=== PATIENT | male | born 1945 | race Caucasian/White ===

== ENCOUNTER 2017-12-17 15:14 | Emergency (ER) | payer MEDICARE ==
[~2017-12-17] VITALS: Ht 175.3 cm; Wt 115.7 kg
[~2017-12-17 15:14] MED LIST: Amlodipine Besyl5 MG PO; Aspirin EC81 MG; BLOOD PRESSURE MED; CHOL10002; FINA5 PO; FLUSAL2505; HYDCHL25 PO; INSLIS75I SC; METO100ER PO; Metformin HCl500 MG PO; OMEP20ER PO; Pravachol40 MG PO; Revatio20 MG PO; SEASONAL ALLERGY MED; STOMACH MED; Zestril40 MG; [UNRECOGNIZED DRUG - OTHER]
[2017-12-17] MEDS ORDERED: FURO40 PO (17:29)
[2017-12-17] MEDS ORDERED: TAMS.4ER PO (17:29)
== END 2017-12-17 18:12 | disposition home or self-care (01) ==
LOC: ER 15:14
DX: R60.0 Localized edema (principal); Z79.899 Other long term (current) drug therapy; Z79.82 Long term (current) use of aspirin; Z79.84 Long term (current) use of oral hypoglycemic drugs
CPT/HCPCS: 93971; 99284-25

== ENCOUNTER 2018-12-17 14:47 | Emergency (ER) | payer MEDICARE ==
[~2018-12-17] VITALS: Ht 170.2 cm; Wt 111.1 kg
[~2018-12-17 14:47] MED LIST changes: +AMLO5 PO; -Amlodipine Besyl5 MG PO; +FURO40 PO; +METF500C PO; -Metformin HCl500 MG PO; +TAMS.4ER PO
[2018-12-17] MEDS ORDERED: IBUP600 PO (17:31)
[2018-12-18] MEDS ORDERED: LABE100 PO (08:27)
[2018-12-18] MEDS ORDERED: POTA10T PO (08:27)
[2018-12-18] MEDS ORDERED: WIXELA 100-501 EACH INH (08:33)
[2018-12-18] MEDS ORDERED: B Complex #11 EACH PO (08:34)
[2018-12-18] MEDS ORDERED: ASCO500 PO (08:35)
[2018-12-18] MEDS ORDERED: CYAN500 PO (08:35)
== END 2018-12-17 17:56 | disposition home or self-care (01) ==
LOC: ER 14:47
DX: M48.061 Spinal stenosis, lumbar region without neurogenic claudication (principal); Z79.899 Other long term (current) drug therapy
CPT/HCPCS: 96372; 99284-25; J1100; J1885

== ENCOUNTER 2018-12-18 07:33 | Emergency (ER) | payer MEDICARE ==
[~2018-12-18] VITALS: Ht 170.2 cm; Wt 111.1 kg
[~2018-12-18 07:33] MED LIST changes: +IBUP600 PO
[2018-12-18 08:11] LABS: BASOPHILS ABSOLUTE AUTO 0.02 K/mm3 (0.00-0.23); BASOPHILS PERCENT AUTO 0 % (0-2); EOSINOPHILS PERCENT AUTO 0 % (0-6); Hematocrit 43.9 % (37.0-53.0); Hemoglobin 15.1 g/dL (13.5-17.5); IMMATURE GRAN ABSOLUTE AUTO 0.05 K/mm3 (0.00-0.10); IMMATURE GRAN PERCENT AUTO 0 % (0-1); LYMPHOCYTES ABSOLUTE AUTO 0.64 K/mm3 (0.84-5.20); LYMPHOCYTES PERCENT AUTO 5 % (21-46); MONOCYTES ABSOLUTE AUTO 0.41 K/mm3 (0.16-1.47); MONOCYTES PERCENT AUTO 3 % (4-13); Mean Corpuscular HGB 30.3 pg (26.0-34.0); Mean Corpuscular HGB Conc 34.4 g/dL (31.5-36.5); Mean Corpuscular Volume 88 fL (80-100); NEUTROPHILS ABSOLUTE AUTO 11.01 K/mm3 (1.96-9.15); NEUTROPHILS PERCENT AUTO 91 % (41-73); Platelet Count 241 K/mm3 (150-400); RDW Coefficient Variation 12.7 % (11.7-14.2); RDW Standard Deviation 41.3 fL (35.1-46.3); Red Blood Cell Count 4.99 M/mm3 (4.30-5.90); White Blood Cell Count 12.13 K/mm3 (4.00-11.30)
[2018-12-18] MEDS ORDERED: LABE100 PO (08:27)
[2018-12-18] MEDS ORDERED: POTA10T PO (08:27)
[2018-12-18] MEDS ORDERED: WIXELA 100-501 EACH INH (08:33)
[2018-12-18] MEDS ORDERED: B Complex #11 EACH PO (08:34)
[2018-12-18] MEDS ORDERED: ASCO500 PO (08:35)
[2018-12-18] MEDS ORDERED: CYAN500 PO (08:35)
[2018-12-18 08:37] LABS: Creatinine, Blood 1.46 mg/dL (0.60-1.20); Potassium, Blood 3.8 mmol/L (3.5-5.5)
[2018-12-18 08:55] LABS: Source, Urine Catheter
[2018-12-18 08:58] LABS: Appearance, Urine Clear (Clear); Bilirubin, Urine Neg (Neg); Blood, Urine Neg (Neg); Color, Urine Yellow (P-Yellow); Glucose Qualitative, Urine Neg (Neg); Ketones, Urine Neg (Neg); Leukocyte Esterase, Urine Neg (Neg); Nitrite, Urine Neg (Neg); Protein, Urine 3+ (Neg); Specific Gravity, Urine 1.015 (1.003-1.022); Urobilinogen, Urine NORM (Normal)
[2018-12-18 09:25] LABS: Amorphous Light (0-Heavy); Bacteria Rare /hpf; Red Blood Cells, Urine 0-2 /hpf (0-2); Squamous Epithelial Cells Not Seen /hpf (Few); White Blood Cells, Urine 0-2 /hpf (0-5)
[2018-12-18 15:36] LABS: International Normalized Ratio 0.99; Prothrombin Time Results 10.5 Sec (9.7-11.5)
[2018-12-18 16:49] LABS: Glucose, CSF 63 mg/dL (40-70)
[2018-12-18 17:10] LABS: Color, CSF No Color (No Color)
[2018-12-18 17:11] LABS: RBC Count, CSF 26 /mm3 (0-0); WBC Count, CSF 5 /mm3 (0-5)
[2018-12-18 18:21] LABS: Appearance, CSF Clear (Clear); Color, CSF No Color (No Color); RBC Count, CSF 83 /mm3 (0-0); WBC Count, CSF 9 /mm3 (0-5)
[2018-12-18 18:28] LABS: Appearance, CSF Clear (Clear)
[2018-12-18 18:38] LABS: Lymphocytes, CSF 74 % (40-80); Monocytes, CSF 24 % (15-45); Neutrophils, CSF 2 % (0-6)
[2018-12-18 18:45] LABS: Lymphocytes, CSF 75 % (40-80); Monocytes, CSF 20 % (15-45); Neutrophils, CSF 5 % (0-6)
[2018-12-18 21:38] LABS: Cryptococcus Neoformans/Gattii Not Detected (NOT DETECT); Enterovirus Not Detected (NOT DETECT); Escherichia Coli K1 Not Detected (NOT DETECT); Haemophilus Influenza Not Detected (NOT DETECT); Herpes Simplex Virus 1 Not Detected (NOT DETECT); Herpes Simplex Virus 2 Not Detected (NOT DETECT); Human Herpesvirus 6 Not Detected (NOT DETECT); Human Parechovirus Not Detected (NOT DETECT); Listeria Monocytogenes Not Detected (NOT DETECT); Neisseria Meningitidis Not Detected (NOT DETECT); Streptococcus Agalactiae Not Detected (NOT DETECT); Streptococcus Pneumoniae Not Detected (NOT DETECT); Varicella Zoster Virus Not Detected (NOT DETECT)
== END 2018-12-18 19:56 | disposition home or self-care (01) ==
LOC: ER 07:33
PROVIDERS: Emergency Medicine
DX: R29.898 Other symptoms and signs involving the musculoskeletal system (principal); R56.9 Unspecified convulsions; Z79.899 Other long term (current) drug therapy
CPT/HCPCS: 36415; 51702; 62270; 70450; 72158; 77003; 80048; 81001; 82945; 82947; 84157; 85025; 85610; 85651; 85730; 86140; 87070; 87205; 87483; 89051; 99285-25; A9577; J7030

== ENCOUNTER 2021-07-24 11:32 | Emergency (ER) | payer OTHER ==
[~2021-07-24] VITALS: Ht 167.6 cm; Wt 120.2 kg
[~2021-07-24 11:32] MED LIST changes: +ASCO500 PO; +B Complex #11 EACH PO; +CEFP200 PO; +CYAN500 PO; +LABE100 PO; +POTA10T PO; +WIXELA 100-501 EACH INH
[2021-07-24] MEDS ORDERED: PRAV20 PO (13:28)
[2021-07-24] MEDS ORDERED: IRON18 MG PO (13:29)
[2021-07-24] MEDS ORDERED: MAGNESIUM OXID500 MG PO (13:29)
[2021-07-24] MEDS ORDERED: GABA100 PO (13:29)
[2021-07-24] MEDS ORDERED: ALBU90OI INH (13:30)
[2021-07-24] MEDS ORDERED: BACL10 PO (13:30)
[2021-07-24] MEDS ORDERED: POTCHL20ER PO (13:30)
[2021-07-24] MEDS ORDERED: DOCU100 PO (13:31)
[2021-07-24] MEDS ORDERED: FAMO20 PO (13:31)
[2021-07-24] MEDS ORDERED: DULO60 PO (13:31)
[2021-07-24] MEDS ORDERED: HYDRA25 PO (13:32)
[2021-07-24] MEDS ORDERED: POLYETHYLENE G500 G1 PO (13:32)
[2021-07-24 13:57] LABS: BASOPHILS ABSOLUTE AUTO 0.01 K/mm3 (0.00-0.23); BASOPHILS PERCENT AUTO 0 % (0-2); EOSINOPHILS PERCENT AUTO 5 % (0-6); Hematocrit 24.6 % (37.0-53.0); Hemoglobin 7.4 g/dL (13.5-17.5); IMMATURE GRAN ABSOLUTE AUTO 0.03 K/mm3 (0.00-0.10); IMMATURE GRAN PERCENT AUTO 1 % (0-1); LYMPHOCYTES ABSOLUTE AUTO 0.34 K/mm3 (0.84-5.20); LYMPHOCYTES PERCENT AUTO 5 % (21-46); MONOCYTES ABSOLUTE AUTO 0.69 K/mm3 (0.16-1.47); MONOCYTES PERCENT AUTO 11 % (4-13); Mean Corpuscular HGB 27.6 pg (26.0-34.0); Mean Corpuscular HGB Conc 30.1 g/dL (31.5-36.5); Mean Corpuscular Volume 92 fL (80-100); Mean Platelet Volume 10.7 fL (9.1-12.4); NEUTROPHILS ABSOLUTE AUTO 5.02 K/mm3 (1.96-9.15); NEUTROPHILS PERCENT AUTO 79 % (41-73); Platelet Count 266 K/mm3 (150-400); RDW Coefficient Variation 15.4 % (11.7-14.2); RDW Standard Deviation 51.5 fL (35.1-46.3); Red Blood Cell Count 2.68 M/mm3 (4.30-5.90); White Blood Cell Count 6.39 K/mm3 (4.00-11.30)
[2021-07-24 14:09] LABS: Albumin/Globulin Ratio 0.9 (0.8-1.8); Bilirubin, Total 0.4 mg/dL (0.1-1.0); Bun/Creatinine Ratio 13.5 (12.0-20.0); Calcium, Blood 8.5 mg/dL (8.5-10.1); Creatinine, Blood 1.55 mg/dL (0.60-1.20); Globulin, Blood 3.2 g/dL (2.2-4.0); Total Protein, Blood 6.2 g/dL (6.4-8.2)
[2021-07-24 15:16] LABS: International Normalized Ratio 1.01; Prothrombin Time Results 10.6 Sec (9.7-11.5)
[2021-07-24 17:10] LABS: Influenza A, PCR NEGATIVE (NEGATIVE); Influenza B, PCR NEGATIVE (NEGATIVE); Resp Syncytial Virus, PCR NEGATIVE (NEGATIVE); SARS-Cov-2 (COVID-19) PCR, MMC NEGATIVE (NEGATIVE)
== END 2021-07-24 19:17 | disposition short-term general hospital (02) ==
LOC: ER 11:32
PROVIDERS: Student in an Organized Health Care Education/Training Program
DX: J81.1 Chronic pulmonary edema (principal); N19 Unspecified kidney failure; D64.9 Anemia, unspecified; K92.1 Melena; Z20.822 Contact with and (suspected) exposure to COVID-19; G40.909 Epilepsy, unspecified, not intractable, without status epilepticus; I10 Essential (primary) hypertension; E11.9 Type 2 diabetes mellitus without complications; Z79.899 Other long term (current) drug therapy; Z79.82 Long term (current) use of aspirin
CPT/HCPCS: 0241U; 36415; 51702; 71045; 80053; 82272; 83880; 85025; 85610; 85730; 86850; 86900; 86901; 93005; 93010; 96374; 96375; 99285-25; C9113; J1940

== ENCOUNTER → 2021-08-24 | Outpatient (CLI) | payer MEDICARE ==
[~2021-08-24] MED LIST changes: +ACET325 PO; +ALBU90OI INH; -Aspirin EC81 MG; +Aspirin EC81 MG PO; -B Complex #11 EACH PO; +BACL10 PO; +BISA10S PR; +DOCU100 PO; +DULO60 PO; +FAMO20 PO; +FERSU300 PO; +FURO20 PO; +GABA100 PO; +HYDRA25 PO; +IRON18 MG PO; +LACT PO; +MAGNESIUM OXID500 MG PO; +METF500 PO; +MIRALAX17 GM PO; +OXYB5 PO; +PANT40 PO; +POLYETHYLENE G500 G1 PO; +POTCHL20ER PO; +PRAV20 PO; +THERA-D2000 UNIT PO; +VITAMIN B-122000 MC1 PO; +Vitamin B Comple1 EA PO; +WIXELA 100-501 EAC1 INH; -WIXELA 100-501 EACH INH; +ZYRTEC10 M2 PO
[2021-08-24 18:58] LABS: BASOPHILS ABSOLUTE AUTO 0.01 K/mm3 (0.00-0.23); BASOPHILS PERCENT AUTO 0 % (0-2); EOSINOPHILS ABSOLUTE AUTO 0.56 K/mm3 (0.00-0.68); EOSINOPHILS PERCENT AUTO 6 % (0-6); Hematocrit 28.2 % (37.0-53.0); Hemoglobin 8.6 g/dL (13.5-17.5); IMMATURE GRAN ABSOLUTE AUTO 0.04 K/mm3 (0.00-0.10); IMMATURE GRAN PERCENT AUTO 0 % (0-1); LYMPHOCYTES ABSOLUTE AUTO 0.37 K/mm3 (0.84-5.20); LYMPHOCYTES PERCENT AUTO 4 % (21-46); MONOCYTES ABSOLUTE AUTO 0.64 K/mm3 (0.16-1.47); MONOCYTES PERCENT AUTO 7 % (4-13); Mean Corpuscular HGB 25.6 pg (26.0-34.0); Mean Corpuscular HGB Conc 30.5 g/dL (31.5-36.5); Mean Corpuscular Volume 84 fL (80-100); Mean Platelet Volume 10.3 fL (9.1-12.4); NEUTROPHILS ABSOLUTE AUTO 7.66 K/mm3 (1.96-9.15); NEUTROPHILS PERCENT AUTO 83 % (41-73); Platelet Count 344 K/mm3 (150-400); RDW Coefficient Variation 14.8 % (11.7-14.2); RDW Standard Deviation 45.6 fL (35.1-46.3); Red Blood Cell Count 3.36 M/mm3 (4.30-5.90); White Blood Cell Count 9.28 K/mm3 (4.00-11.30)
== END | disposition home or self-care (01) ==
LOC: LAB 17:00 → LAB SHORT 17:00
PROVIDERS: Student in an Organized Health Care Education/Training Program
DX: D64.9 Anemia, unspecified (principal)
CPT/HCPCS: 85025

== ENCOUNTER → 2021-09-28 | Outpatient (CLI) | payer MEDICARE ==
[2021-09-28 19:51] LABS: Protein, Urine Quantitative 133.3 mg/dL (0.0-11.9)
== END | disposition home or self-care (01) ==
LOC: LAB SHORT 07:00 → LAB 07:00
PROVIDERS: Internal Medicine Nephrology
DX: N18.4 Chronic kidney disease, stage 4 (severe) (principal); D63.1 Anemia in chronic kidney disease; D50.9 Iron deficiency anemia, unspecified; N25.81 Secondary hyperparathyroidism of renal origin; E55.9 Vitamin D deficiency, unspecified; E78.00 Pure hypercholesterolemia, unspecified; D51.8 Other vitamin B12 deficiency anemias; D52.8 Other folate deficiency anemias; R76.9 Abnormal immunological finding in serum, unspecified; R94.5 Abnormal results of liver function studies; R94.6 Abnormal results of thyroid function studies
CPT/HCPCS: 81050; 82043; 82570; 84156

== ENCOUNTER → 2021-10-08 | Outpatient (CLI) | payer OTHER | END | disposition home or self-care (01) | LOC: LAB 16:26 → LAB SHORT 16:26 | DX: N39.0 Urinary tract infection, site not specified (principal) | CPT/HCPCS: 87086 ==

== ENCOUNTER → 2022-03-12 | Outpatient (CLI) | payer OTHER | END | disposition home or self-care (01) | LOC: LAB SHORT 15:00 | DX: N39.0 Urinary tract infection, site not specified (principal) | CPT/HCPCS: 87077; 87086; 87186 ==

== ENCOUNTER → 2022-06-17 | Outpatient (CLI) | payer OTHER | END | disposition home or self-care (01) | LOC: LAB SHORT 15:14 → LAB 15:14 | DX: N39.0 Urinary tract infection, site not specified (principal) | CPT/HCPCS: 87077; 87086; 87186 ==

== ENCOUNTER → 2023-01-06 | Outpatient (CLI) | payer OTHER | LOC: LAB SHORT 08:00 → LAB 08:00 | DX: N39.0 Urinary tract infection, site not specified (principal) | CPT/HCPCS: 87077; 87086; 87186 ==

== ENCOUNTER → 2023-03-06 | Outpatient (CLI) | payer OTHER | END | disposition home or self-care (01) | LOC: LAB 15:06 → LAB SHORT 15:06 | DX: N39.0 Urinary tract infection, site not specified (principal) | CPT/HCPCS: 87077; 87086; 87186 ==

== ENCOUNTER 2023-05-23 15:31 | Emergency (ER) | payer OTHER ==
[~2023-05-23] VITALS: Ht 170.2 cm; Wt 115.7 kg
[2023-05-23 15:35] VITALS: BP 130/70
[2023-05-23 16:17] LABS: Source, Urine Clean Catch
[2023-05-23 16:20] LABS: Appearance, Urine Clear (Clear); Bilirubin, Urine Neg (Neg); Blood, Urine Neg (Neg); Color, Urine Yellow (P-Yellow); Glucose Qualitative, Urine Neg (Neg); Ketones, Urine Neg (Neg); Leukocyte Esterase, Urine Neg (Neg); Nitrite, Urine Neg (Neg); Protein, Urine 2+ (Neg); Specific Gravity, Urine 1.015 (1.003-1.022); Urobilinogen, Urine NORM (Normal)
[2023-05-23 16:25] LABS: Hyaline Casts 0-2 /lpf (0-2)
[2023-05-23 16:26] LABS: Bacteria Few /hpf; Red Blood Cells, Urine 0-2 /hpf (0-2); Squamous Epithelial Cells Few /hpf (Few); White Blood Cells, Urine 0-2 /hpf (0-5)
== END 2023-05-23 17:57 | disposition home or self-care (01) ==
LOC: ER 15:31
PROVIDERS: Physician Assistant
DX: R33.9 Retention of urine, unspecified (principal); Z79.899 Other long term (current) drug therapy; Z79.84 Long term (current) use of oral hypoglycemic drugs; Z79.82 Long term (current) use of aspirin; G40.909 Epilepsy, unspecified, not intractable, without status epilepticus; I10 Essential (primary) hypertension; E11.9 Type 2 diabetes mellitus without complications
CPT/HCPCS: 51702; 81001

== ENCOUNTER 2024-01-26 11:42 | Inpatient (IN) | payer OTHER, MEDICARE ==
[~2024-01-26] VITALS: Ht 170.2 cm; Wt 113.4 kg
[~2024-01-26 11:42] MED LIST changes: +DULO30 PO; -DULO60 PO; -FURO20 PO; +FURO80 PO; -LACT PO; -PRAV20 PO; +PRAVASTATIN SOD40 MG PO; +VISBIOME 112.51 EACH PO
[2024-01-26] MEDS ORDERED: Pantoprazole Sodium 40 MG Injection IV ONE (11:50)
[2024-01-26] MEDS ORDERED: CefTRIAXone Sodium 1,000 MG in NS 100 ML IV ONE ×2 (11:50→13:30)
[2024-01-26] MEDS ORDERED: NS 1,000 ML IV SCH (12:00)
[2024-01-26 12:25] LABS: BASOPHILS ABSOLUTE AUTO 0.02 K/mm3 (0.00-0.23); BASOPHILS PERCENT AUTO 0 % (0-2); EOSINOPHILS ABSOLUTE AUTO 0.05 K/mm3 (0.00-0.68); EOSINOPHILS PERCENT AUTO 0 % (0-6); Hematocrit 33.5 % (37.0-53.0); Hemoglobin 10.2 g/dL (13.5-17.5); IMMATURE GRAN ABSOLUTE AUTO 0.08 K/mm3 (0.00-0.10); IMMATURE GRAN PERCENT AUTO 1 % (0-1); LYMPHOCYTES ABSOLUTE AUTO 0.27 K/mm3 (0.84-5.20); LYMPHOCYTES PERCENT AUTO 2 % (21-46); MONOCYTES ABSOLUTE AUTO 1.29 K/mm3 (0.16-1.47); MONOCYTES PERCENT AUTO 8 % (4-13); Mean Corpuscular HGB 24.6 pg (26.0-34.0); Mean Corpuscular HGB Conc 30.4 g/dL (31.5-36.5); Mean Corpuscular Volume 81 fL (80-100); Mean Platelet Volume 10.7 fL (9.1-12.4); NEUTROPHILS ABSOLUTE AUTO 14.31 K/mm3 (1.96-9.15); NEUTROPHILS PERCENT AUTO 89 % (41-73); Platelet Count 249 K/mm3 (150-400); RDW Coefficient Variation 20.4 % (11.7-14.2); RDW Standard Deviation 59.2 fL (35.1-46.3); Red Blood Cell Count 4.14 M/mm3 (4.30-5.90); White Blood Cell Count 16.02 K/mm3 (4.00-11.30)
[2024-01-26 12:51] LABS: Albumin, Blood 2.3 g/dL (3.4-5.0); Albumin/Globulin Ratio 0.7 (0.8-1.8); Bilirubin, Total 0.4 mg/dL (0.1-1.0); Bun/Creatinine Ratio 18.8 (12.0-20.0); Calcium, Blood 8.1 mg/dL (8.5-10.1); Creatinine, Blood 2.61 mg/dL (0.60-1.20); Globulin, Blood 3.2 g/dL (2.2-4.0); Potassium, Blood 3.9 mmol/L (3.5-5.5); Total Protein, Blood 5.5 g/dL (6.4-8.2)
[2024-01-26 13:10] LABS: International Normalized Ratio 1.03
[2024-01-26] MEDS ORDERED: MetroNIDAZOLE 500MG/NS 100 ml 100 ML IV ONE ×2 (13:30→16:25)
[2024-01-26] MEDS ORDERED: HYDROmorphone HCl/Pf 1MG SYR IV PRN (14:55)
[2024-01-26] MEDS ORDERED: FLU VACC TS2024-25(6MOS UP)/PF 45 MCG/0.5 ML SYRINGE IM SCH (14:55)
[2024-01-26] MEDS ORDERED: Acetaminophen 325 MG TABLET PO PRN (15:00)
[2024-01-26] MEDS ORDERED: Albuterol 2.5 MG/3 ML VIAL INH PRN (15:00)
[2024-01-26] MEDS ORDERED: Mometasone/Formoterol MDI 100/5 mcg 13 GM INH SCH (15:15)
[2024-01-26] MEDS ORDERED: Sodium Bicarb 8.4% Inj 75 MEQ in Sodium Chloride 0.45% 1,000 ML IV SCH (16:00)
[2024-01-26] MEDS ORDERED: Insulin Glargine-Yfgn 100 Unit/mL 3 ML SYR SC SCH (16:00)
[2024-01-26] MEDS ORDERED: Insulin Regular 100 UNIT/ML 10ML Vial SC SCH (16:30)
[2024-01-26] MEDS ORDERED: INSULANPEN SC (16:33)
[2024-01-26] MEDS ORDERED: LIDO5TO TOP (16:35)
[2024-01-26] MEDS ORDERED: NITR100CA PO (16:45)
[2024-01-26] MEDS ORDERED: TRAZ50 PO (16:48)
[2024-01-26] MEDS ORDERED: Carvedilol12.5 MG PO (16:59)
[2024-01-26] MEDS ORDERED: LOSA50 PO (17:01)
[2024-01-26] MEDS ORDERED: POTA20LUD PO (17:01)
[2024-01-26] MEDS ORDERED: PROCRIT40000 UNIT INJ (17:06)
[2024-01-26 18:58] VITALS: BP 105/75
[2024-01-26 18:58] LABS: Source, Urine Straight Cath
[2024-01-26 19:09] LABS: Appearance, Urine Cloudy (Clear); Bilirubin, Urine Neg (Neg); Blood, Urine Neg (Neg); Color, Urine Yellow (P-Yellow); Glucose Qualitative, Urine Neg (Neg); Ketones, Urine Neg (Neg); Leukocyte Esterase, Urine 3+ (Neg); Nitrite, Urine Neg (Neg); Protein, Urine 2+ (Neg); Specific Gravity, Urine 1.015 (1.003-1.022); Urobilinogen, Urine NORM (Normal)
[2024-01-26 19:23] LABS: White Blood Cells, Urine TNTC /hpf (0-5)
[2024-01-26 19:24] LABS: Red Blood Cells, Urine 0-2 /hpf (0-2)
[2024-01-26 19:25] LABS: Bacteria Many /hpf; Squamous Epithelial Cells Not Seen /hpf (Few)
[2024-01-26 20:37] VITALS: BP 127/59
[2024-01-26] MEDS ORDERED: DULoxetine HCL 60 MG Capsule DR PO SCH (21:00)
[2024-01-26] MEDS ORDERED: Baclofen 10 MG Tab PO SCH (21:00)
[2024-01-26] MEDS ORDERED: Famotidine 20 MG Tab PO SCH (21:00)
[2024-01-26] MEDS ORDERED: Lactobacil 2-S.Thermo-Bifido 1 1 Cap PO SCH (21:00)
[2024-01-26] MEDS ORDERED: Gabapentin 100 MG Cap PO SCH (21:00)
[2024-01-26] MEDS ORDERED: Pravastatin Sodium 20 MG Tab PO SCH (21:00)
[2024-01-26 22:15] LABS: Beta-hydroxybutyrate 4.2 mg/dL (0.2-2.8); Bun/Creatinine Ratio 17.3 (12.0-20.0); Calcium, Blood 8.3 mg/dL (8.5-10.1); Creatinine, Blood 2.71 mg/dL (0.60-1.20); Potassium, Blood 4.1 mmol/L (3.5-5.5)
[2024-01-27] MEDS ORDERED: MetroNIDAZOLE 500MG/NS 100 ml 100 ML IV SCH
[2024-01-27 04:30] VITALS: BP 104/54
--- NOTE | 2024-01-27 04:36 | NUR ---
SHIFT SUMMARY: Pt is admitted for proctocolitis and is a full code. Is alert and able to make needs known. ADLs have been 2p. Denies pain or discomfort when asked. Telly running sinus in the 70s with a 1 deg. at bedside.
[2024-01-27] MEDS ORDERED: MULVITA PO (05:32)
[2024-01-27] MEDS ORDERED: ARTIFICIAL TEA1 EAC1 BOTHEYES (05:33)
[2024-01-27] MEDS ORDERED: OZEMPIC1 MG/0.72 SC (05:37)
[2024-01-27 06:00] LABS: BASOPHILS ABSOLUTE AUTO 0.01 K/mm3 (0.00-0.23); BASOPHILS PERCENT AUTO 0 % (0-2); EOSINOPHILS ABSOLUTE AUTO 0.03 K/mm3 (0.00-0.68); EOSINOPHILS PERCENT AUTO 0 % (0-6); Hematocrit 30.7 % (37.0-53.0); Hemoglobin 9.3 g/dL (13.5-17.5); IMMATURE GRAN ABSOLUTE AUTO 0.07 K/mm3 (0.00-0.10); IMMATURE GRAN PERCENT AUTO 1 % (0-1); LYMPHOCYTES ABSOLUTE AUTO 0.18 K/mm3 (0.84-5.20); LYMPHOCYTES PERCENT AUTO 2 % (21-46); MONOCYTES ABSOLUTE AUTO 1.07 K/mm3 (0.16-1.47); MONOCYTES PERCENT AUTO 9 % (4-13); Mean Corpuscular HGB 24.5 pg (26.0-34.0); Mean Corpuscular HGB Conc 30.3 g/dL (31.5-36.5); Mean Corpuscular Volume 81 fL (80-100); Mean Platelet Volume 10.1 fL (9.1-12.4); NEUTROPHILS ABSOLUTE AUTO 10.68 K/mm3 (1.96-9.15); NEUTROPHILS PERCENT AUTO 89 % (41-73); Platelet Count 249 K/mm3 (150-400); RDW Coefficient Variation 20.6 % (11.7-14.2); RDW Standard Deviation 60.1 fL (35.1-46.3); Red Blood Cell Count 3.79 M/mm3 (4.30-5.90); White Blood Cell Count 12.04 K/mm3 (4.00-11.30)
[2024-01-27] MEDS ORDERED: Pantoprazole Sodium 40 MG Tab PO SCH (06:00)
[2024-01-27 06:35] LABS: Albumin, Blood 2.1 g/dL (3.4-5.0); Albumin/Globulin Ratio 0.8 (0.8-1.8); Bilirubin, Total 0.3 mg/dL (0.1-1.0); Bun/Creatinine Ratio 16.7 (12.0-20.0); Calcium, Blood 7.7 mg/dL (8.5-10.1); Creatinine, Blood 2.81 mg/dL (0.60-1.20); Globulin, Blood 2.8 g/dL (2.2-4.0); Potassium, Blood 3.6 mmol/L (3.5-5.5); Total Protein, Blood 4.9 g/dL (6.4-8.2)
[2024-01-27 07:46] VITALS: BP 114/45
[2024-01-27] MEDS ORDERED: Bumetanide 0.25 MG/ML 4ML ViaL IV SCH ×2 (09:00)
[2024-01-27] MEDS ORDERED: Potassium Chloride 20 MEQ/15 ML UDC PO SCH (09:00)
[2024-01-27] MEDS ORDERED: Furosemide 10 MG / ML 2ML Vial IV SCH (09:00)
[2024-01-27] MEDS ORDERED: Midodrine 2.5 MG Tab PO SCH (13:00)
[2024-01-27] MEDS ORDERED: LevETIRAcetam 500 MG Tab PO SCH (13:00)
[2024-01-27 13:45] VITALS: BP 108/45
[2024-01-27 15:41] VITALS: BP 140/63
[2024-01-27] MEDS ORDERED: CefTRIAXone Sodium 1,000 MG in NS 100 ML IV SCH (16:00)
[2024-01-27 17:00] VITALS: BP 131/59
--- NOTE | 2024-01-27 17:32 | NUR ---
SHIFT SUMMARY PT IS A&OX2. PT ALERT TO SELF, REPORTS DAY AND MONTH OF BIRTHDAY, CAN'T RECAL YEAR/CURRENT LOCATION. PT ADMITTED DUE TO PROCTOCOLITIS. PT REPORTS SOME ABDOMINAL TENDERNESS. 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 HAS ORDERS TO PT RECIEVING ANTIBIOTICS AND SODIUM BICARD AT 75ML/HR. PT HAS BEEN AT BEDSIDE DURING DAY. REPORTS STRAIGHT CATHING HIM Q6-7 HRS. ORDERS CURRENTLY SAY TO STRAIGHT CATH Q8 HRS. PT HAD 350ML VOID THIS AM AND 400ML VOID THIS AFTERNOON. PT INCONTINENT OF STOOLS. STOOLS HAVE BEEN LIQUIDY. PT HAS HAD SOFT BLOOD PRESSURES. BP CURRENTLY 131/59. PT HAS NOT REPORTED PAIN. PT HAS SOME TEMORS IN BUE. PT CALL LIGHT IN REACH.
--- NOTE | 2024-01-27 19:28 | NUR ---
NOTE PT RECIEVED ANTIBIOTIC FLUIDS DURING SHIFT. SODIUM BICARB WAS RUNNING AT 75ML/HR. IV FLUID AMOUNT CLEARED WAS 1,834ML. PT VOIDED A TOTAL OF 750ML DURING SHIFT VIA STRAIGHT CATH. CALLED DR. PARK, DR. PARK ORDERED TO D/C SODIUM BICARB.
[2024-01-27 19:54] VITALS: BP 118/62
[2024-01-27] MEDS ORDERED: DULoxetine HCL 30 MG Cap DR PO SCH (21:00)
[2024-01-27] MEDS ORDERED: NS 250 ML IV PRN (22:00)
[2024-01-27] MEDS ORDERED: TraZODone HCl 50 MG Tab PO PRN (23:20)
[2024-01-28 03:02] VITALS: BP 123/66
--- NOTE | 2024-01-28 04:25 | NUR ---
SHIFT SUMMARY PATIENT HAD NO ACUTE CHANGES. AXOX 2 AND BEDREST. DENIES CHEST PAIN, SOB, AND N/V. ON 1-2 L O2 NC. PIVS INTACT. IV ABX INFUSED. SPOUSE REPORTED HE TAKES TRAZODONE AT HOME FOR INSOMNIA. HOSPITALIST AUBREY SPARKS ORDERED TRAZODONE 50 MG HOME MED RX DOSE. SPOUSE ASKED FOR HIM TO BE BLADDER SCAN AT 6 HR VS Q8 ORDERED. BLADDER SCAN 10 mL. IV FLUIDS WERE DC ON DAY SHIFT. VSS/AFEBRILE.TELE MONITOR NSR 81. BUE TREMORS. ASSIST WITH MEDICATION AND FLUID INTAKE. SPOUSE STAYED IN ROOM T/O SHIFT. PATIENT CONFUSED AT TIMES PULLING TELE LEADS OFF X TWO. CALL LIGHT IN REACH. BED IN LOWEST POSITION. WILL CONTINUE TO MONITOR UNTIL DAY SHIFT NURSE ASSUMES CARE.
[2024-01-28 05:53] LABS: BASOPHILS ABSOLUTE AUTO 0.01 K/mm3 (0.00-0.23); BASOPHILS PERCENT AUTO 0 % (0-2); EOSINOPHILS ABSOLUTE AUTO 0.31 K/mm3 (0.00-0.68); EOSINOPHILS PERCENT AUTO 5 % (0-6); Hemoglobin 8.9 g/dL (13.5-17.5); IMMATURE GRAN ABSOLUTE AUTO 0.04 K/mm3 (0.00-0.10); IMMATURE GRAN PERCENT AUTO 1 % (0-1); LYMPHOCYTES ABSOLUTE AUTO 0.33 K/mm3 (0.84-5.20); LYMPHOCYTES PERCENT AUTO 5 % (21-46); MONOCYTES ABSOLUTE AUTO 0.82 K/mm3 (0.16-1.47); MONOCYTES PERCENT AUTO 12 % (4-13); Mean Corpuscular HGB 24.7 pg (26.0-34.0); Mean Corpuscular HGB Conc 30.7 g/dL (31.5-36.5); Mean Corpuscular Volume 80 fL (80-100); Mean Platelet Volume 9.9 fL (9.1-12.4); NEUTROPHILS ABSOLUTE AUTO 5.13 K/mm3 (1.96-9.15); NEUTROPHILS PERCENT AUTO 77 % (41-73); Platelet Count 257 K/mm3 (150-400); RDW Standard Deviation 58.5 fL (35.1-46.3); Red Blood Cell Count 3.61 M/mm3 (4.30-5.90); White Blood Cell Count 6.64 K/mm3 (4.00-11.30)
[2024-01-28 06:14] LABS: Bun/Creatinine Ratio 15.8 (12.0-20.0); Calcium, Blood 7.7 mg/dL (8.5-10.1); Creatinine, Blood 2.85 mg/dL (0.60-1.20); Potassium, Blood 3.4 mmol/L (3.5-5.5)
[2024-01-28 07:12] VITALS: BP 125/61
[2024-01-28 09:24] LABS: Magnesium, Blood 2.5 mg/dL (1.6-2.4); Phosphorus, Blood 4.9 mg/dL (2.5-4.9)
[2024-01-28] MEDS ORDERED: Sodium Bicarb 8.4% Inj 150 MEQ in Dextrose 5% 1,000 ML IV SCH (13:20)
[2024-01-28 13:22] LABS: PCO2 Arterial 37.7 mmHg (35-45); PO2 Arterial 75.6 mmHg (80-100); pH Blood Arterial 7.29 (7.35-7.45)
[2024-01-28 14:45] VITALS: BP 130/68
[2024-01-28] MEDS ORDERED: Sod Ferric Gluc Complx/Sucrose 125 MG in NS 100 ML IV SCH (16:00)
[2024-01-28 16:45] LABS: Percent Saturation 8.2 % (20.0-50.0)
[2024-01-28 17:33] LABS: Magnesium, Blood 2.5 mg/dL (1.6-2.4)
[2024-01-28 17:38] LABS: Potassium, Blood 4.1 mmol/L (3.5-5.5)
[2024-01-28] MEDS ORDERED: Bumetanide 0.25 MG/ML 4ML ViaL IV SCH (18:00)
--- NOTE | 2024-01-28 18:21 | NUR ---
SHIFT SUMMARY PT AO TO SELF, SLEPT A MAJORITY OF THE SHIFT. PG PLACED IN R UA AND RUNNING FLUIDS. STRAIGHT CATH AT LEAST Q6, DOCUMENTED IN CHART. REPOSITIONED THROUGHOUT THE SHIFT. NO EVENTS PER TELE. AT THE BS ALL SHIFT AND PROVIDED INFORMATION. WHEN PT IS AWAKE, HE IS CONFUSED AND USES WORD SALAD. CPAP ON DURING SLEEP. RA WHEN ABLE. CALL LIGHT WITHIN REACH, BED LOCKED AND IN THE LOWEST POSITION. WILL REPORT TO ONCOMING NURSE.
[2024-01-28 18:39] LABS: Magnesium, Blood 2.5 mg/dL (1.6-2.4); Potassium, Blood 3.9 mmol/L (3.5-5.5)
--- NOTE | 2024-01-28 18:43 | NUR ---
NOTE: CALLED DR. GONZALES WITH POTASSIUM AND MAGNESIUM RESULTS REQUESTED. NO NEW ORDERS AT THIS TIME.
[2024-01-28 20:40] VITALS: BP 142/66
[2024-01-29 03:34] VITALS: BP 144/86
[2024-01-29 05:49] LABS: BASOPHILS ABSOLUTE AUTO 0.02 K/mm3 (0.00-0.23); BASOPHILS PERCENT AUTO 0 % (0-2); EOSINOPHILS ABSOLUTE AUTO 0.27 K/mm3 (0.00-0.68); EOSINOPHILS PERCENT AUTO 5 % (0-6); Hematocrit 31.3 % (37.0-53.0); Hemoglobin 9.4 g/dL (13.5-17.5); IMMATURE GRAN ABSOLUTE AUTO 0.03 K/mm3 (0.00-0.10); IMMATURE GRAN PERCENT AUTO 1 % (0-1); LYMPHOCYTES ABSOLUTE AUTO 0.28 K/mm3 (0.84-5.20); LYMPHOCYTES PERCENT AUTO 5 % (21-46); MONOCYTES ABSOLUTE AUTO 0.82 K/mm3 (0.16-1.47); MONOCYTES PERCENT AUTO 14 % (4-13); Mean Corpuscular HGB 24.2 pg (26.0-34.0); Mean Corpuscular Volume 81 fL (80-100); NEUTROPHILS ABSOLUTE AUTO 4.39 K/mm3 (1.96-9.15); NEUTROPHILS PERCENT AUTO 76 % (41-73); Platelet Count 274 K/mm3 (150-400); RDW Coefficient Variation 20.1 % (11.7-14.2); RDW Standard Deviation 58.2 fL (35.1-46.3); Red Blood Cell Count 3.89 M/mm3 (4.30-5.90); White Blood Cell Count 5.81 K/mm3 (4.00-11.30)
[2024-01-29 06:34] LABS: Albumin, Blood 2.3 g/dL (3.4-5.0); Albumin/Globulin Ratio 0.7 (0.8-1.8); Bilirubin, Total 0.2 mg/dL (0.1-1.0); Bun/Creatinine Ratio 14.2 (12.0-20.0); Calcium, Blood 8.2 mg/dL (8.5-10.1); Creatinine, Blood 2.74 mg/dL (0.60-1.20); Globulin, Blood 3.1 g/dL (2.2-4.0); Magnesium, Blood 2.4 mg/dL (1.6-2.4); Phosphorus, Blood 4.9 mg/dL (2.5-4.9); Potassium, Blood 3.7 mmol/L (3.5-5.5); Total Protein, Blood 5.4 g/dL (6.4-8.2)
[2024-01-29 07:26] VITALS: BP 164/74
[2024-01-29] MEDS ORDERED: Potassium Chloride 20 MEQ TabCR PO SCH (08:00)
[2024-01-29] MEDS ORDERED: Eplerenone 25 MG Tab PO SCH (09:00)
[2024-01-29] MEDS ORDERED: Sodium Bicarbonate 650 MG Tab PO SCH (10:00)
[2024-01-29 12:55] LABS: Campylobacter Sp Not Detected (NOT DETECT); Cryptosporidium Not Detected (NOT DETECT); Cyclospora Cayetanensis Not Detected (NOT DETECT); E. Coli O157 Not Detected (NOT DETECT); Entamoeba Histolytica Not Detected (NOT DETECT); Enteroaggregative E. coli-EAEC Not Detected (NOT DETECT); Enteropathogenic E. coli-EPEC Not Detected (NOT DETECT); Enterotoxigenic E. coli-ETEC Not Detected (NOT DETECT); Plesiomonas Shigelloides Not Detected (NOT DETECT); Salmonella Sp Not Detected (NOT DETECT); Shiga Toxin-prod E. coli-STEC Not Detected (NOT DETECT); Shigella/Enteroin E. coli-EIEC Not Detected (NOT DETECT); Vibrio Cholerae Not Detected (NOT DETECT); Vibrio Sp Not Detected (NOT DETECT); Yersinia Enterocolitica Not Detected (NOT DETECT)
[2024-01-29 12:56] LABS: Adenovirus F 40/41 Not Detected (NOT DETECT); Astrovirus Not Detected (NOT DETECT); Giardia Lamblia Not Detected (NOT DETECT); Norovirus GI/GII Not Detected (NOT DETECT); Rotavirus A Not Detected (NOT DETECT); Sapovirus Not Detected (NOT DETECT)
[2024-01-29 14:03] VITALS: BP 167/77
[2024-01-29] MEDS ORDERED: Peg 400/Hypromellose/Glycerin 15 DROP/ML BTL BOTHEYES PRN (16:10)
[2024-01-29] MEDS ORDERED: AmLODIPine Besylate 5 MG Tab PO SCH (17:00)
[2024-01-29] MEDS ORDERED: Vancomycin HCl 125 MG Cap PO SCH (18:00)
--- NOTE | 2024-01-29 18:18 | NUR ---
SHIFT SUMMARY PT AOX3, MENTATION HAS IMPROVED THIS SHIFT. MORE ALERT AND ABLE TO HAVE A CONVERSATION. STRAIGHT CATH Q8. ON PRECAUTIONS FOR CDIFF. FAMILY AT THE BS. NO EVENTS PER TELE. PT HAS HAD NO COMPLAINTS. CALLS AND MAKES HIS NEEDS KNOWN. REPOSITIONED THROUGHT THE SHIFT. CALL LIGHT WITHIN REACH, BED LOCKED AND IN THE LOWEST POSITION. WILL REPORT TO ONCOMING NURSE.
[2024-01-29 19:31] VITALS: BP 178/87
[2024-01-30 04:25] VITALS: BP 172/85
--- NOTE | 2024-01-30 07:31 | NUR ---
SHIFT SUMMARY NOC PT A/O X 3-4. FORGETFUL AT TIMES, BUT PLEASANT AND COOPERATIVE WITH CARE. ON CONTACT ISOLATION FOR C DIFF. AND SISTER AT BEDSIDE. BP SLIGHTLY ELEVATED. PT Q8H STRAIGHT CATH DUE TO BELOW WAIST PARALYSIS. BLADDER SCAN SHOWED 1080 ML AND STRAIGHT CATH OUTPUT 950 ML. BP HAD DRIED BLOOD ON BACKSIDE FROM PRIOR BM. ON TELE SINUS RHYTHM IN 70'S. WEARING CPAP FOR SLEEP. HS CBG 154 AND SCHEDULED 5 UNITS LONG ACTING INSULIN GIVEN. PT CURRENTLY RESTING WITH BED IN LOWEST POSITION, AND CALL LIGHT WITHIN REACH.
[2024-01-30 07:43] VITALS: BP 188/93
[2024-01-30 08:03] LABS: Hemoglobin 9.5 g/dL (13.5-17.5)
[2024-01-30 08:10] LABS: Albumin, Blood 2.3 g/dL (3.4-5.0); Anion Gap 11 mmol/L (3-11); Blood Urea Nitrogen 33 mg/dL (8-24); Bun/Creatinine Ratio 13.1 (12.0-20.0); CO2, Blood 21 mmol/L (21-32); Calcium, Blood 7.8 mg/dL (8.5-10.1); Chloride, Blood 118 mmol/L (98-108); Creatinine, Blood 2.52 mg/dL (0.60-1.20); Glomerular Filtration Rate 26 (60-); Glucose, Blood 98 mg/dL (70-99); Magnesium, Blood 2.3 mg/dL (1.6-2.4); Phosphorus, Blood 4.1 mg/dL (2.5-4.9); Potassium, Blood 3.8 mmol/L (3.5-5.5); Sodium, Blood 146 mmol/L (136-145)
[2024-01-30] MEDS ORDERED: Metolazone 5 MG Tab PO SCH (09:00)
[2024-01-30] MEDS ORDERED: Bumetanide 0.25 MG/ML 4ML ViaL IV SCH (09:00)
[2024-01-30 09:07] LABS: Albumin, Blood 2.3 g/dL (3.4-5.0); Anion Gap 9 mmol/L (3-11); Blood Urea Nitrogen 33 mg/dL (8-24); Bun/Creatinine Ratio 12.9 (12.0-20.0); CO2, Blood 21 mmol/L (21-32); Calcium, Blood 7.8 mg/dL (8.5-10.1); Chloride, Blood 119 mmol/L (98-108); Creatinine, Blood 2.55 mg/dL (0.60-1.20); Glomerular Filtration Rate 25 (60-); Glucose, Blood 98 mg/dL (70-99); Phosphorus, Blood 4.2 mg/dL (2.5-4.9); Potassium, Blood 3.9 mmol/L (3.5-5.5); Sodium, Blood 145 mmol/L (136-145)
[2024-01-30 16:58] VITALS: BP 162/95
--- NOTE | 2024-01-30 18:19 | NUR ---
SHIFT SUMMARY: PT A&O X3. FORGETFUL AT TIMES. PLEASANT AND COOPERATIVE WITH CARE. CONTACT ENTERIC ISOLATION FOR CDIFF. IV DIURETICS GIVEN TWICE THIS SHIFT. STRAIGHT CATH COMPLETED TWICE WITH A TOTAL OF 1700mL EMPTIED. ON TELE RUNNING SINUS RHYHTM WITH 1ST DEGREE HB. BLOOD SUGAR STABLE. CALL LIGHT IN REACH. BED IN LOWEST POSITION.
[2024-01-30 20:03] VITALS: BP 154/80
[2024-01-31 05:38] VITALS: BP 178/90
[2024-01-31 06:19] LABS: Hematocrit 34.2 % (37.0-53.0); Hemoglobin 10.7 g/dL (13.5-17.5)
[2024-01-31 06:41] LABS: Albumin, Blood 2.6 g/dL (3.4-5.0); Anion Gap 11 mmol/L (3-11); Blood Urea Nitrogen 33 mg/dL (8-24); Bun/Creatinine Ratio 11.9 (12.0-20.0); CO2, Blood 22 mmol/L (21-32); Calcium, Blood 8.5 mg/dL (8.5-10.1); Chloride, Blood 113 mmol/L (98-108); Creatinine, Blood 2.77 mg/dL (0.60-1.20); Glomerular Filtration Rate 23 (60-); Glucose, Blood 108 mg/dL (70-99); Magnesium, Blood 1.9 mg/dL (1.6-2.4); Potassium, Blood 4.2 mmol/L (3.5-5.5); Sodium, Blood 142 mmol/L (136-145)
[2024-01-31 07:18] VITALS: BP 174/86
--- NOTE | 2024-01-31 07:34 | NUR ---
SHIFT SUMMARY PT A&Ox4. NO C/O PAIN OR FEELING SOB. PT REPORTS NO FEELING FROM WAIST DOWN. PT HAD TWO EPISODES OF MUCOUSY STOOL WITH SCANT AMOUNT OF BLOOD NOTED IN MUCOUS. PT STRAIGHT CATHED AT 2330 AND 0600. TOLERATED WELL. AT BEDSIDE AND VERY VOCAL ABOUT CARE. ORAL ABX GIVEN PER EMAR. MORNING BP ELEVATED. DR RAMAN CALLED AND ORDERS GIVEN TO WAIT AND GIVE SCHEDULED MORNING BP MED's, DAY SHIFT NURSE NOTIFIED. NO EVENTS ON TELE. EVENING BG WAS 106. BED IN LOWEST POSITION AND CALL LIGHT IN REACH.
[2024-01-31] MEDS ORDERED: Furosemide 10 MG/ML 4ML Vial IV SCH (09:00)
[2024-01-31] MEDS ORDERED: Midodrine 2.5 MG Tab PO SCH (09:00)
[2024-01-31] MEDS ORDERED: Albumin Human 50 ML IV SCH (09:00)
[2024-01-31] MEDS ORDERED: Metolazone 5 MG Tab PO SCH (09:00)
[2024-01-31 16:34] VITALS: BP 182/89
--- NOTE | 2024-01-31 17:37 | NUR ---
SHIFT SUMMARY PT RESTING QUIETLY AT START OF SHIFT ON CPAP. PT'S AT BS. PT IN CONTACT ISO FOR C-DIFF. PARAPLEGIC WITH NEUROGENIC BLADDER. STRAIGHT CATH Q6 HRS. PT GIVEN MULTIPLE PO AND IV MEDICATIONS THRU OUT THE DAY; SEE EMAR. SR ON TELE, PER MX. PT REFUSING TO BE POSITIONED OFF BUTTOCKS EXCEPT FOR ONE TIME. SKIN IN GOOD CONDITION AT THIS TIME. BLE'S VERY SWOLLEN; ELEVATED ON PILLOWS. PT REPORTS BEING NUMB FROM THE WAIST DOWN. NO C/O PAIN. DENIES FURTHER NEEDS AT THIS TIME. CALL LT IN REACH.
[2024-01-31 19:36] VITALS: BP 171/78
[2024-02-01 06:56] LABS: BASOPHILS ABSOLUTE AUTO 0.03 K/mm3 (0.00-0.23); BASOPHILS PERCENT AUTO 0 % (0-2); EOSINOPHILS ABSOLUTE AUTO 0.38 K/mm3 (0.00-0.68); EOSINOPHILS PERCENT AUTO 4 % (0-6); Hematocrit 34.1 % (37.0-53.0); Hemoglobin 10.7 g/dL (13.5-17.5); IMMATURE GRAN ABSOLUTE AUTO 0.17 K/mm3 (0.00-0.10); IMMATURE GRAN PERCENT AUTO 2 % (0-1); LYMPHOCYTES ABSOLUTE AUTO 0.37 K/mm3 (0.84-5.20); LYMPHOCYTES PERCENT AUTO 4 % (21-46); MONOCYTES ABSOLUTE AUTO 1.16 K/mm3 (0.16-1.47); MONOCYTES PERCENT AUTO 11 % (4-13); Mean Corpuscular HGB 24.5 pg (26.0-34.0); Mean Corpuscular HGB Conc 31.4 g/dL (31.5-36.5); Mean Corpuscular Volume 78 fL (80-100); NEUTROPHILS ABSOLUTE AUTO 8.09 K/mm3 (1.96-9.15); NEUTROPHILS PERCENT AUTO 79 % (41-73); Platelet Count 289 K/mm3 (150-400); RDW Coefficient Variation 20.1 % (11.7-14.2); RDW Standard Deviation 54.6 fL (35.1-46.3); Red Blood Cell Count 4.36 M/mm3 (4.30-5.90)
[2024-02-01 07:26] LABS: Anion Gap 13 mmol/L (3-11); Blood Urea Nitrogen 37 mg/dL (8-24); Bun/Creatinine Ratio 13.1 (12.0-20.0); CO2, Blood 24 mmol/L (21-32); Calcium, Blood 8.5 mg/dL (8.5-10.1); Chloride, Blood 107 mmol/L (98-108); Creatinine, Blood 2.82 mg/dL (0.60-1.20); Glomerular Filtration Rate 22 (60-); Glucose, Blood 111 mg/dL (70-99); Phosphorus, Blood 4.8 mg/dL (2.5-4.9); Potassium, Blood 3.7 mmol/L (3.5-5.5); Sodium, Blood 140 mmol/L (136-145)
--- NOTE | 2024-02-01 07:36 | NUR ---
SHIFT SUMMARY PT A&Ox3. NO C/O PAIN. PT STRAIGHT CATHED Q6 HRS WITH NO COMPLICATIONS. CONTINUING ORAL ABX. AT BEDSIDE T/O NIGHT. TWO SMALL MUCOUSY STOOL. PT USES HOME CPAP AT NIGHT. NO ACUTE CHANGES. BED IN LOWEST POSITION AND CALL LIGHT IN REACH.
[2024-02-01 08:07] VITALS: BP 185/89
[2024-02-01] MEDS ORDERED: Furosemide 10 MG/ML 10ML Vial IV SCH (09:00)
[2024-02-01] MEDS ORDERED: NS IV SCH (09:00)
[2024-02-01] MEDS ORDERED: FUROSEMIDE IV SCH (09:00)
[2024-02-01] MEDS ORDERED: Carvedilol 6.25 MG Tab PO SCH (11:00)
[2024-02-01] MEDS ORDERED: AmLODIPine Besylate 5 MG Tab PO SCH (11:00)
[2024-02-01] MEDS ORDERED: HydrALAZINE HCl 25 MG Tab PO SCH (14:00)
[2024-02-01 16:12] VITALS: BP 161/91
--- NOTE | 2024-02-01 20:11 | NUR ---
SHIFT SUMMARY PT RESTING QUIETLY AT START OF SHIFT, WITH SLEEPING AT BS. PT WOKE EASILY FOR CARE. DR GONZALES HERE EARLY TO SEE PT; NEW ORDERS PLACED. IV DIURETIC'S CHANGED AND INCREASED WITH GOOD RESULTS. PT'S URINE OUTPUT INCREASED; SEE CHART. SEVERAL HEAVY INCONTINENT VOIDS WITH Q6 HR STRAIGHT CATH OUTPUT INCREASED WELL. DR PARK ALSO HERE EARLY TO SEE PT. HOME BP MEDS RESTARTED; SEE CHART. PER PT'S , PT TO D/C TO HOME TOMORROW. PT CONTINUED TO REFUSE TO BE POSITIONED OFF BUTTOCKS AGAIN TODAY; SKIN REMAINS CLEAR TO PRESENT. NO C/O PAIN. PLEASANT, BUT FORGET AT TIMES. CALL LT IN REACH.
[2024-02-01 20:37] VITALS: BP 180/91
[2024-02-02 03:50] VITALS: BP 151/92
--- NOTE | 2024-02-02 06:22 | NUR ---
Patient alert and oriented x3, resting comfortably in bed on room air and CPAP while sleeping. Q6 straight cath completed by RN at bedside, tolerated well, patient incontinent of urine as well. Patient refusing turns, buttocks blanching red, and patient educated on turning and pressure injury prevention but no changes to course of care. Patient and anticipating discharging home today.
[2024-02-02 07:41] VITALS: BP 155/92
[2024-02-02] MEDS ORDERED: Furosemide 40 MG Tab PO SCH ×2 (09:34→18:00)
[2024-02-02 10:36] LABS: Albumin, Blood 3.4 g/dL (3.4-5.0); Anion Gap 13 mmol/L (3-11); Blood Urea Nitrogen 49 mg/dL (8-24); Bun/Creatinine Ratio 15.2 (12.0-20.0); CO2, Blood 27 mmol/L (21-32); Calcium, Blood 8.6 mg/dL (8.5-10.1); Chloride, Blood 102 mmol/L (98-108); Creatinine, Blood 3.22 mg/dL (0.60-1.20); Glomerular Filtration Rate 19 (60-); Glucose, Blood 163 mg/dL (70-99); Phosphorus, Blood 5.8 mg/dL (2.5-4.9); Potassium, Blood 3.3 mmol/L (3.5-5.5); Sodium, Blood 139 mmol/L (136-145)
[2024-02-02] MEDS ORDERED: EPLE25 PO (11:59)
[2024-02-02] MEDS ORDERED: SODBIC650 PO (12:00)
[2024-02-02] MEDS ORDERED: METO5 PO (12:00)
[2024-02-02] MEDS ORDERED: VANCOCIN HCL125 MG PO (12:01)
--- NOTE | 2024-02-02 14:53 | NUR ---
DISCHARGE/SHIFT SUMMARY: A&Ox4. PLEASANT AND COOPERATIVE WITH CARE. CALLS APPROPRIATELY AND IS ABLE TO ADVOCATE NEEDS EFFECTIVELY. 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 AMBULATES WITH ELECTRIC WHEELCHAIR AT BASELINE. STRAIGHT CATH Q6H AND INCONTINENT OF BOWEL. MEDS WHOLE WITH FLUIDS. POWERGLIDE RIGHT UPPER ARM FLUSH AND DRAW; REMOVED BY THIS RN PRIOR TO DC. TELE SINUS c FHB IN 60s. NO C/O PAIN OR DISCOMFORT TODAY. MEDS TO [facility]; AWARE THEY WILL NOT BE ABLE TO SOCIAL MEDIA MARKETING MANAGER UNTIL TOMORROW. FOLLOW-UP WITH PCP 3-[address] GONZALES ORDERED. PATIENT ESCORTED FROM FLOOR VIA ELECTRIC WHEELCHAIR WITH ALL BELONGINGS AND DISCHARGE PACKET @ [id number]. TRANSPORTATION PROVIDED BY VIA POV.
[2024-02-03] MEDS ORDERED: Metolazone 5 MG Tab PO SCH (09:00)
== END 2024-02-02 14:50 | disposition home health service (06) | DRG 871 ==
LOC: ER 11:42 → MEDS 14:55
PROVIDERS: Internal Medicine Nephrology; Nurse Practitioner Acute Care; Student in an Organized Health Care Education/Training Program; ADMIT Internal Medicine
PROC: 3E03329 Introduction of Other Anti-infective into Peripheral Vein, Percutaneous Approach (ICD-10-PCS; principal; 2024-01-26)
PROC: 4A033R1 Measurement of Arterial Saturation, Peripheral, Percutaneous Approach (ICD-10-PCS; 2024-01-28)
DX: A41.9 Sepsis, unspecified organism (principal); G92.8 Other toxic encephalopathy; E87.21 Acute metabolic acidosis; N17.9 Acute kidney failure, unspecified; G82.20 Paraplegia, unspecified; A04.72 Enterocolitis due to Clostridium difficile, not specified as recurrent; N25.81 Secondary hyperparathyroidism of renal origin; I13.0 Hypertensive heart and chronic kidney disease with heart failure and stage 1 through stage 4 chronic kidney disease, or unspecified chronic kidney disease; K51.311 Ulcerative (chronic) rectosigmoiditis with rectal bleeding; E87.6 Hypokalemia; D50.9 Iron deficiency anemia, unspecified; R65.20 Severe sepsis without septic shock; N18.31 Chronic kidney disease, stage 3a; G47.33 Obstructive sleep apnea (adult) (pediatric); N31.9 Neuromuscular dysfunction of bladder, unspecified; E11.22 Type 2 diabetes mellitus with diabetic chronic kidney disease; G25.3 Myoclonus; D63.1 Anemia in chronic kidney disease; I50.9 Heart failure, unspecified; Z98.890 Other specified postprocedural states; Z79.899 Other long term (current) drug therapy; Z79.2 Long term (current) use of antibiotics; Z88.8 Allergy status to other drugs, medicaments and biological substances; Z74.01 Bed confinement status; Z79.82 Long term (current) use of aspirin; Z79.84 Long term (current) use of oral hypoglycemic drugs
CPT/HCPCS: 36415; 36600; 51701; 74174; 80048; 80053; 80069; 81001; 82010; 82330; 82607; 82728; 82746; 82803; 82947; 83540; 83550; 83605; 83735; 83880; 84100; 84132; 85014; 85018; 85025; 85610; 85730; 86850; 86900; 86901; 87040; 87077; 87086; 87186; 87324; 87507; 94640; 94664; 94762; 97165; 97535; 99285-25; A9270; C1751; J0696; J1815; J1940; J2916; J7030; J7050; J7070; P9047; P9612; Q9967

== ENCOUNTER 2024-02-14 19:25 | Emergency (ER) | payer OTHER ==
[~2024-02-14] VITALS: Ht 175.3 cm; Wt 99.8 kg
[~2024-02-14 19:25] MED LIST changes: +ARTIFICIAL TEA1 EAC1 BOTHEYES; +Carvedilol12.5 MG PO; +EPLE25 PO; +INSULANPEN SC; +LIDO5TO TOP; +LOSA50 PO; +METO5 PO; +MULVITA PO; +NITR100CA PO; +OZEMPIC1 MG/0.72 SC; +POTA20LUD PO; +PROCRIT40000 UNIT INJ; +SODBIC650 PO; +TRAZ50 PO; +VANCOCIN HCL125 MG PO
[2024-02-14] MEDS ORDERED: Albuterol 2.5 MG/3 ML VIAL INH ONE (19:50)
[2024-02-14 19:52] LABS: BASOPHILS ABSOLUTE AUTO 0.01 K/mm3 (0.00-0.23); BASOPHILS PERCENT AUTO 0 % (0-2); EOSINOPHILS ABSOLUTE AUTO 0.09 K/mm3 (0.00-0.68); EOSINOPHILS PERCENT AUTO 1 % (0-6); Hematocrit 38.2 % (37.0-53.0); Hemoglobin 12.2 g/dL (13.5-17.5); IMMATURE GRAN ABSOLUTE AUTO 0.05 K/mm3 (0.00-0.10); IMMATURE GRAN PERCENT AUTO 0 % (0-1); LYMPHOCYTES ABSOLUTE AUTO 0.27 K/mm3 (0.84-5.20); LYMPHOCYTES PERCENT AUTO 2 % (21-46); MONOCYTES ABSOLUTE AUTO 0.96 K/mm3 (0.16-1.47); MONOCYTES PERCENT AUTO 8 % (4-13); Mean Corpuscular HGB 25.1 pg (26.0-34.0); Mean Corpuscular HGB Conc 31.9 g/dL (31.5-36.5); Mean Corpuscular Volume 78 fL (80-100); Mean Platelet Volume 10.5 fL (9.1-12.4); NEUTROPHILS ABSOLUTE AUTO 10.81 K/mm3 (1.96-9.15); NEUTROPHILS PERCENT AUTO 89 % (41-73); Platelet Count 383 K/mm3 (150-400); RDW Coefficient Variation 19.7 % (11.7-14.2); RDW Standard Deviation 54.9 fL (35.1-46.3); Red Blood Cell Count 4.87 M/mm3 (4.30-5.90); White Blood Cell Count 12.19 K/mm3 (4.00-11.30)
[2024-02-14 20:04] LABS: Albumin/Globulin Ratio 0.8 (0.8-1.8); Bilirubin, Total 0.4 mg/dL (0.1-1.0); Bun/Creatinine Ratio 33.1 (12.0-20.0); Calcium, Blood 8.9 mg/dL (8.5-10.1); Creatinine, Blood 3.81 mg/dL (0.60-1.20); Globulin, Blood 3.8 g/dL (2.2-4.0); Magnesium, Blood 1.7 mg/dL (1.6-2.4); Potassium, Blood 3.6 mmol/L (3.5-5.5); Total Protein, Blood 6.8 g/dL (6.4-8.2)
[2024-02-14 21:42] LABS: Influenza A, PCR NEGATIVE (NEGATIVE); Influenza B, PCR NEGATIVE (NEGATIVE); Resp Syncytial Virus, PCR NEGATIVE (NEGATIVE); SARS-Cov-2 (COVID-19) PCR, MMC NEGATIVE (NEGATIVE)
[2024-02-14] MEDS ORDERED: RX Prepack Albuterol 1 PREPACK/6.7 GM INH UD ONE (22:35)
[2024-02-14 22:45] VITALS: BP 147/75
== END 2024-02-15 00:06 | disposition home or self-care (01) ==
LOC: ER 19:25
PROVIDERS: Student in an Organized Health Care Education/Training Program
DX: R06.09 Other forms of dyspnea (principal); J44.9 Chronic obstructive pulmonary disease, unspecified; I13.0 Hypertensive heart and chronic kidney disease with heart failure and stage 1 through stage 4 chronic kidney disease, or unspecified chronic kidney disease; I50.9 Heart failure, unspecified; N18.9 Chronic kidney disease, unspecified; E11.9 Type 2 diabetes mellitus without complications; G40.909 Epilepsy, unspecified, not intractable, without status epilepticus; G36.0 Neuromyelitis optica [Devic]; G82.20 Paraplegia, unspecified; G47.33 Obstructive sleep apnea (adult) (pediatric); Z88.2 Allergy status to sulfonamides; Z88.1 Allergy status to other antibiotic agents; Z88.8 Allergy status to other drugs, medicaments and biological substances; Z79.82 Long term (current) use of aspirin; Z79.51 Long term (current) use of inhaled steroids; Z79.4 Long term (current) use of insulin; Z79.899 Other long term (current) drug therapy
CPT/HCPCS: 0241U; 51701; 71045; 80053; 83735; 83880; 84484; 85025; 93005; 93010; 94640; 94664; 99285-25; A9270

== ENCOUNTER → 2024-02-23 | Outpatient (CLI) | payer OTHER ==
[2024-02-26 06:00] LABS: CORTISOL,URINE FREE - PER 24H 2.6 ug/d (<=60.0); CORTISOL,URN FREE - PER VOLUME 4.35 ug/L; CREATININE,URINE - PER 24H 492 mg/d (800-2100); CREATININE,URINE - PER VOLUME 82 mg/dL; HOURS COLLECTED 24 hr; TOTAL VOLUME 600 mL
== END | disposition home or self-care (01) ==
LOC: LAB SHORT 15:00 → LAB 15:00 → LAB SO 02-18 14:25
PROVIDERS: Internal Medicine Nephrology
DX: N18.30 Chronic kidney disease, stage 3 unspecified (principal); D63.1 Anemia in chronic kidney disease; N25.81 Secondary hyperparathyroidism of renal origin; E55.9 Vitamin D deficiency, unspecified; E29.1 Testicular hypofunction; R76.9 Abnormal immunological finding in serum, unspecified; R94.6 Abnormal results of thyroid function studies
CPT/HCPCS: 81050; 82530

== ENCOUNTER → 2024-06-02 | Outpatient (CLI) | payer OTHER, MEDICARE ==
[~2024-06-02] MED LIST changes: +DIFICID200 MG PO; +KLOR-CON 1010 ME9 PO; +MICONAZOLE NITR85 GM TOP
[2024-06-08 07:18] LABS: ALBUMIN %,URINE 35.5 %; ALPHA-1 %,URINE 13.6 %; GAMMA GLOBULIN %,URINE 12.9 %; HOURS COLLECTED Random hr; PARAPROTEIN %,URINE 12.6 %; TOTAL VOLUME Random mL
== END | disposition home or self-care (01) ==
LOC: LAB SHORT 11:05 → LAB 11:05 → LAB FUT 06-01 13:10
PROVIDERS: Internal Medicine Nephrology
DX: N18.5 Chronic kidney disease, stage 5 (principal); D63.1 Anemia in chronic kidney disease; N25.81 Secondary hyperparathyroidism of renal origin; E55.9 Vitamin D deficiency, unspecified; E78.00 Pure hypercholesterolemia, unspecified; D50.9 Iron deficiency anemia, unspecified; D51.8 Other vitamin B12 deficiency anemias; D52.8 Other folate deficiency anemias; G80.9 Cerebral palsy, unspecified; R76.9 Abnormal immunological finding in serum, unspecified; R94.6 Abnormal results of thyroid function studies; R94.5 Abnormal results of liver function studies
CPT/HCPCS: 84156; 84166; 86335

== ENCOUNTER → 2024-07-27 | Outpatient (CLI) | payer OTHER, MEDICARE ==
[2024-07-27 17:06] LABS: Albumin, Blood 3.1 g/dL (3.4-5.0); Anion Gap 14 mmol/L (3-11); Blood Urea Nitrogen 87 mg/dL (8-24); CO2, Blood 27 mmol/L (21-32); Calcium, Blood 8.7 mg/dL (8.5-10.1); Chloride, Blood 98 mmol/L (98-108); Creatinine, Blood 3.78 mg/dL (0.60-1.20); Glomerular Filtration Rate 16 (60-); Glucose, Blood 176 mg/dL (70-99); Phosphorus, Blood 2.6 mg/dL (2.5-4.9); Potassium, Blood 3.6 mmol/L (3.5-5.5); Sodium, Blood 135 mmol/L (136-145)
== END ==
LOC: LAB SHORT 15:30 → LAB 15:30
PROVIDERS: Internal Medicine Nephrology
DX: N18.6 End stage renal disease (principal)
CPT/HCPCS: 80069

== ENCOUNTER → 2024-08-28 | Outpatient (CLI) | payer OTHER, MEDICARE ==
[2024-08-28 16:28] LABS: C DIFFICILE DNA NEGATIVE (Negative)
== END ==
LOC: LAB SHORT 12:00 → LAB 12:00
PROVIDERS: Internal Medicine Nephrology
DX: A49.9 Bacterial infection, unspecified (principal)
CPT/HCPCS: 87493

== ENCOUNTER 2024-11-18 17:13 | Inpatient (IN) | payer OTHER ==
[~2024-11-18] VITALS: Ht 172.7 cm; Wt 106.1 kg
[2024-11-18 18:13] LABS: BASOPHILS ABSOLUTE AUTO 0.04 K/mm3 (0.00-0.23); BASOPHILS PERCENT AUTO 0 % (0-2); EOSINOPHILS ABSOLUTE AUTO 0.27 K/mm3 (0.00-0.68); EOSINOPHILS PERCENT AUTO 2 % (0-6); Hematocrit 45.9 % (37.0-53.0); Hemoglobin 14.6 g/dL (13.5-17.5); IMMATURE GRAN ABSOLUTE AUTO 0.13 K/mm3 (0.00-0.10); IMMATURE GRAN PERCENT AUTO 1 % (0-1); LYMPHOCYTES ABSOLUTE AUTO 0.59 K/mm3 (0.84-5.20); LYMPHOCYTES PERCENT AUTO 4 % (21-46); MONOCYTES ABSOLUTE AUTO 1.26 K/mm3 (0.16-1.47); MONOCYTES PERCENT AUTO 8 % (4-13); Mean Corpuscular HGB Conc 31.8 g/dL (31.5-36.5); Mean Corpuscular Volume 103 fL (80-100); NEUTROPHILS ABSOLUTE AUTO 13.95 K/mm3 (1.96-9.15); NEUTROPHILS PERCENT AUTO 86 % (41-73); NRBC ABSOLUTE 0.00 K/mm3 (0.00-0.02); NRBC Auto 0.0 /100 WBC (0.0-0.2); Platelet Count 250 K/mm3 (150-400); RDW Coefficient Variation 18.6 % (11.7-14.2); RDW Standard Deviation 70.9 fL (35.1-46.3)
[2024-11-18 18:25] LABS: pH Blood Venous 7.43 (7.34-7.37)
[2024-11-18 18:29] LABS: Alanine Aminotransfer (ALT/SGP 25.0 U/L (12-78); Albumin, Blood 3.1 g/dL (3.4-5.0); Albumin/Globulin Ratio 0.7 (0.8-1.8); Anion Gap 11.0 mmol/L (3-11); Aspartate Aminotrans (AST/SGOT 20.0 U/L (12-37); Bilirubin, Total 0.6 mg/dL (0.1-1.0); Blood Urea Nitrogen 38.0 mg/dL (8-24); CO2, Blood 36.0 mmol/L (21-32); Calcium, Blood 9.2 mg/dL (8.5-10.1); Chloride, Blood 92.0 mmol/L (98-108); Creatinine, Blood 2.69 mg/dL (0.60-1.20); Globulin, Blood 4.6 g/dL (2.2-4.0); Glucose, Blood 172.0 mg/dL (70-99); Potassium, Blood 3.7 mmol/L (3.5-5.5); Sodium, Blood 135.0 mmol/L (136-145); Total Protein, Blood 7.7 g/dL (6.4-8.2)
[2024-11-18] MEDS ORDERED: Ondansetron HCl 2 MG / ML 2ML Vial IV PRN (21:25)
[2024-11-18] MEDS ORDERED: Albuterol 2.5 MG/3 ML VIAL INH PRN (21:25)
[2024-11-18] MEDS ORDERED: Formoterol/Mometasone MDI 5/100 mcg 13 GM INH SCH (21:30)
[2024-11-18 21:32] LABS: Anti-Xa UFH, PHA Monitoring <0.10 IU/mL; Prothrombin Time Results 10.9 Sec (9.7-11.5)
[2024-11-18] MEDS ORDERED: Heparin Sodium,Porcine/0.5 NS 500 ML IV SCH (21:35)
[2024-11-18] MEDS ORDERED: Heparin Sodium 5000 Units/ML 1ML MDV IV ONE (21:35)
[2024-11-18] MEDS ORDERED: DULoxetine HCL 30 MG Cap DR PO SCH (22:00)
[2024-11-18 22:35] VITALS: BP 117/73
[2024-11-18] MEDS ORDERED: Calcium Carbon500 MG PO (22:51)
[2024-11-18] MEDS ORDERED: CLON.5 PO (22:54)
[2024-11-18] MEDS ORDERED: LOPE2C PO (23:00)
[2024-11-18] MEDS ORDERED: MELA3 PO (23:02)
[2024-11-18] MEDS ORDERED: MIDO5 PO (23:04)
[2024-11-18] MEDS ORDERED: STRIVERDI RESPIM4 G1 INH (23:08)
[2024-11-18] MEDS ORDERED: TOPI50 PO (23:09)
[2024-11-19] VITALS (17 sets, daily range): BP systolic 92–129; BP diastolic 38–81
[2024-11-19] MEDS ORDERED: Darbepoetin (Pharmacy Consult) SC SCH (00:05)
[2024-11-19] MEDS ORDERED: Insulin Glargine-Yfgn 100 Unit/mL 3 ML SYR SC SCH ×2 (00:52→21:00)
[2024-11-19 04:21] LABS: BASOPHILS ABSOLUTE AUTO 0.01 K/mm3 (0.00-0.23); BASOPHILS PERCENT AUTO 0 % (0-2); EOSINOPHILS ABSOLUTE AUTO 0.13 K/mm3 (0.00-0.68); EOSINOPHILS PERCENT AUTO 1 % (0-6); Hematocrit 39.4 % (37.0-53.0); Hemoglobin 13.0 g/dL (13.5-17.5); IMMATURE GRAN ABSOLUTE AUTO 0.11 K/mm3 (0.00-0.10); IMMATURE GRAN PERCENT AUTO 1 % (0-1); LYMPHOCYTES ABSOLUTE AUTO 0.40 K/mm3 (0.84-5.20); LYMPHOCYTES PERCENT AUTO 3 % (21-46); MONOCYTES ABSOLUTE AUTO 1.17 K/mm3 (0.16-1.47); MONOCYTES PERCENT AUTO 9 % (4-13); Mean Corpuscular HGB Conc 33.0 g/dL (31.5-36.5); NEUTROPHILS ABSOLUTE AUTO 11.19 K/mm3 (1.96-9.15); NEUTROPHILS PERCENT AUTO 86 % (41-73); NRBC ABSOLUTE 0.00 K/mm3 (0.00-0.02); NRBC Auto 0.0 /100 WBC (0.0-0.2); Platelet Count 219 K/mm3 (150-400); RDW Coefficient Variation 18.3 % (11.7-14.2); RDW Standard Deviation 65.7 fL (35.1-46.3)
[2024-11-19 04:25] LABS: Mean Corpuscular Volume 98 fL (80-100)
[2024-11-19] MEDS ORDERED: Dose Adjust by Pharmacy XX STA ×2 (04:40→11:30)
[2024-11-19 04:44] LABS: Alanine Aminotransfer (ALT/SGP 20.0 U/L (12-78); Albumin, Blood 2.6 g/dL (3.4-5.0); Albumin/Globulin Ratio 0.6 (0.8-1.8); Anion Gap 11.0 mmol/L (3-11); Aspartate Aminotrans (AST/SGOT 14.0 U/L (12-37); Bilirubin, Total 0.5 mg/dL (0.1-1.0); Blood Urea Nitrogen 56.0 mg/dL (8-24); CO2, Blood 30.0 mmol/L (21-32); Calcium, Blood 8.2 mg/dL (8.5-10.1); Chloride, Blood 95.0 mmol/L (98-108); Creatinine, Blood 3.7 mg/dL (0.60-1.20); Globulin, Blood 4.1 g/dL (2.2-4.0); Glucose, Blood 148.0 mg/dL (70-99); Magnesium, Blood 2.2 mg/dL (1.6-2.4); Phosphorus, Blood 2.0 mg/dL (2.5-4.9); Potassium, Blood 4.1 mmol/L (3.5-5.5); Sodium, Blood 132.0 mmol/L (136-145); Total Protein, Blood 6.7 g/dL (6.4-8.2)
[2024-11-19] MEDS ORDERED: Sodium Phosphate 10 MM in Dextrose 5% 250 ML IV ONE (06:10)
--- NOTE | 2024-11-19 06:24 | NUR ---
SHIFT SUMMARY PATIENT ARRIVED TO PCU 08 VIA STRETCHER AT 2225. PATIENT ALERT AND ORIENTED X3, SLIDE TRANSFER COMPLETED PATIENT IS PARAPLEGIC. PATIENT ARRIVED ON 5 LITERS O2 VIA NC, CURRENTLY ON 3 LITERS O2 VIA SIMPLE MASK. VITAL SIGNS STABLE. NO ACUTE ISSUES NOTED OVERNIGHT. WILL CONTINUE TO MONITOR. CALL LIGHT WITHIN REACH.
[2024-11-19] MEDS ORDERED: Insulin Human Lispro 100 Units/ML 3ML Syringe SC SCH (07:30)
[2024-11-19] MEDS ORDERED: Calcium Acetate 667 MG Gel Cap PO SCH (08:30)
[2024-11-19] MEDS ORDERED: Vitamin B Cmplx/Vit C/Folic Ac 1 Tab PO SCH (09:00)
--- NOTE | 2024-11-19 11:56 | NUR ---
UPDATE MD STEINBERG IN ROOM TO CONSULT. PT TO BE NPO UNTIL DECISION MADE ABOUT PROCEDURE. PT TO DIAYLSIS NOW TO BE DIALYSED.
--- NOTE | 2024-11-19 17:09 | NUR ---
SHIFT SUMMARY NO ACUTE CHANGES THIS SHIFT. PT ALERT, ORIENTED BUT MAKES LITTLE SPEECH. OFTEN SPEAKS FOR PATIENT. SP02>90% ON 4L NC. STATES MILD SOB. TELEMETRY SHOWS NSR, HR 80'S. DIALYSIS PT, OLIGURIA, BLADDER SCAN W/ <50 MLS. NO BM THIS SHIFT. ECHO DONE THIS SHIFT, SEE RESULTS. PT CHANGED FROM HEP GTT TO ORAL ANTICOAG PER EMAR. IN ROOM MOST OF SHIFT. REPOSITIONED Q2H. PT SITTING UP IN BED, EATING DINNER. CALL LIGHT IN REACH.
[2024-11-20] VITALS (17 sets, daily range): BP systolic 105–135; BP diastolic 64–79
[2024-11-20 05:18] LABS: BASOPHILS ABSOLUTE AUTO 0.03 K/mm3 (0.00-0.23); BASOPHILS PERCENT AUTO 0 % (0-2); EOSINOPHILS ABSOLUTE AUTO 0.31 K/mm3 (0.00-0.68); EOSINOPHILS PERCENT AUTO 3 % (0-6); Hematocrit 39.8 % (37.0-53.0); Hemoglobin 12.5 g/dL (13.5-17.5); IMMATURE GRAN ABSOLUTE AUTO 0.07 K/mm3 (0.00-0.10); IMMATURE GRAN PERCENT AUTO 1 % (0-1); LYMPHOCYTES ABSOLUTE AUTO 0.52 K/mm3 (0.84-5.20); LYMPHOCYTES PERCENT AUTO 5 % (21-46); MONOCYTES ABSOLUTE AUTO 0.96 K/mm3 (0.16-1.47); MONOCYTES PERCENT AUTO 10 % (4-13); Mean Corpuscular HGB Conc 31.4 g/dL (31.5-36.5); Mean Corpuscular Volume 103 fL (80-100); NEUTROPHILS ABSOLUTE AUTO 8.13 K/mm3 (1.96-9.15); NEUTROPHILS PERCENT AUTO 81 % (41-73); NRBC ABSOLUTE 0.00 K/mm3 (0.00-0.02); NRBC Auto 0.0 /100 WBC (0.0-0.2); Platelet Count 216 K/mm3 (150-400); RDW Coefficient Variation 18.6 % (11.7-14.2); RDW Standard Deviation 70.4 fL (35.1-46.3)
[2024-11-20 05:51] LABS: Magnesium, Blood 2.3 mg/dL (1.6-2.4)
[2024-11-20 05:52] LABS: Alanine Aminotransfer (ALT/SGP 18.0 U/L (12-78); Albumin, Blood 2.6 g/dL (3.4-5.0); Albumin/Globulin Ratio 0.6 (0.8-1.8); Anion Gap 9.0 mmol/L (3-11); Aspartate Aminotrans (AST/SGOT 14.0 U/L (12-37); Bilirubin, Total 0.4 mg/dL (0.1-1.0); Blood Urea Nitrogen 44.0 mg/dL (8-24); CO2, Blood 31.0 mmol/L (21-32); Calcium, Blood 8.7 mg/dL (8.5-10.1); Chloride, Blood 99.0 mmol/L (98-108); Creatinine, Blood 3.83 mg/dL (0.60-1.20); Globulin, Blood 4.2 g/dL (2.2-4.0); Glucose, Blood 145.0 mg/dL (70-99); Phosphorus, Blood 4.3 mg/dL (2.5-4.9); Potassium, Blood 4.3 mmol/L (3.5-5.5); Sodium, Blood 135.0 mmol/L (136-145); Total Protein, Blood 6.8 g/dL (6.4-8.2)
--- NOTE | 2024-11-20 06:37 | NUR ---
SHIFT SUMMARY PATIENT ALERT AND ORIENTED X3. HAD NO COMPLAINTS OF PAIN. ON 5 LITERS O2 VIA NC WHILE AWAKE, WORE HOME CPAP FOR SLEEP. VITAL SIGNS STABLE. NO ACUTE ISSUES NOTED OVENRIGHT. WILL CONTINUE TO MONITOR. CALL LIGHT WITHIN REACH.
[2024-11-20] MEDS ORDERED: ELIQUIS5 M2 PO (13:59)
[2024-11-20] MEDS ORDERED: CefTRIAXone 1000 MG Vial IM ONE (20:25)
[2024-11-20 22:22] LABS: Source, Urine Suprapubic Cath
[2024-11-20 22:34] LABS: Bilirubin, Urine Neg (Neg); Glucose Qualitative, Urine Neg (Neg); Ketones, Urine Neg (Neg); Leukocyte Esterase, Urine 3+ (Neg); Protein, Urine 4+ (Neg); Specific Gravity, Urine 1.015 (1.003-1.022); Urobilinogen, Urine NORM (Normal)
[2024-11-20 22:44] LABS: Color, Urine Pale Yellow (P-Yellow); White Blood Cells, Urine TNTC /hpf (0-5)
--- NOTE | 2024-11-20 22:54 | NUR ---
ACUTE CHANGE DURING SHIFT CHANGE REGARDING PT WITH CLOUDY/ MILKY PENILE DISCHARGE. MD CALLED AND CAME TO THE BEDSIDE. URINALYSIS ORDERED OBTAINED BY STRAIGHT CATH. 90 MLS OF CLOUDY PURULENT URINE SAMPLE SENT TO LAB. ANTIBIOTICS GIVEN TONIGHT PER AND RICKEY. BEDTIME MEDS GIVEN. VITALS WNL. BLOOD SUGAR 177 INSULIN GIVEN PER MAR ORDER. PT THEN ASSISTED WITH PERICARE. DISCHARGE INSTRUCTION AND EDUCATION PROVIDED TO PT AND SPOUSE WHO BOTH VERBALISE UNDERSTANDING. HOME OXYGEN ALSO ARRIVED. PT THEN LEFT AT 2130 ALERT AND ORIENTED X4 WITH FORGETFULL OF DAY. NO C/O PAIN. ON 3L N.C. NO FURTHER QUESTIONS ASKED BY PT OT SPOUSE.
== END 2024-11-20 21:29 | disposition home or self-care (01) | DRG 175 ==
LOC: ER 17:13 → PCU 21:21
PROVIDERS: Emergency Medicine; Internal Medicine Nephrology; Nurse Practitioner Acute Care; Student in an Organized Health Care Education/Training Program; ADMIT Student in an Organized Health Care Education/Training Program
DX: I26.99 Other pulmonary embolism without acute cor pulmonale (principal); J96.01 Acute respiratory failure with hypoxia; N18.6 End stage renal disease; E87.1 Hypo-osmolality and hyponatremia; I50.32 Chronic diastolic (congestive) heart failure; G36.0 Neuromyelitis optica [Devic]; I82.411 Acute embolism and thrombosis of right femoral vein; I82.432 Acute embolism and thrombosis of left popliteal vein; E83.39 Other disorders of phosphorus metabolism; Z99.2 Dependence on renal dialysis; G40.909 Epilepsy, unspecified, not intractable, without status epilepticus; E11.22 Type 2 diabetes mellitus with diabetic chronic kidney disease; J44.9 Chronic obstructive pulmonary disease, unspecified; G47.33 Obstructive sleep apnea (adult) (pediatric); D63.1 Anemia in chronic kidney disease; Z87.19 Personal history of other diseases of the digestive system; Z98.890 Other specified postprocedural states; Z79.4 Long term (current) use of insulin; Z79.899 Other long term (current) drug therapy; Z88.5 Allergy status to narcotic agent; Z88.8 Allergy status to other drugs, medicaments and biological substances
CPT/HCPCS: 36415; 71045; 71260; 80053; 81001; 82803; 82947; 83735; 83880; 84100; 84484; 85025; 85520; 85610; 85730; 87077; 87086; 87186; 93005; 93010; 93306; 93970; 94640; 94664; 94761; 94762; 99285-25; A9270; J0696; J1644; J1815; J7060; Q9967

== ENCOUNTER 2025-02-02 16:20 | Inpatient (IN) | payer OTHER ==
[~2025-02-02] VITALS: Ht 172.7 cm; Wt 105.6 kg
[~2025-02-02 16:20] MED LIST changes: +CLON.5 PO; +Calcium Carbon500 MG PO; +ELIQUIS5 M2 PO; +LOPE2C PO; +MELA3 PO; +MIDO5 PO; +STRIVERDI RESPIM4 G1 INH; +TOPI50 PO
[2025-02-02 16:56] LABS: BASOPHILS ABSOLUTE AUTO 0.00 K/mm3 (0.00-0.23); BASOPHILS PERCENT AUTO 0 % (0-2); EOSINOPHILS ABSOLUTE AUTO 0.15 K/mm3 (0.00-0.68); EOSINOPHILS PERCENT AUTO 3 % (0-6); Hematocrit 20.3 % (37.0-53.0); Hemoglobin 6.3 g/dL (13.5-17.5); IMMATURE GRAN ABSOLUTE AUTO 0.04 K/mm3 (0.00-0.10); IMMATURE GRAN PERCENT AUTO 1 % (0-1); LYMPHOCYTES ABSOLUTE AUTO 0.35 K/mm3 (0.84-5.20); LYMPHOCYTES PERCENT AUTO 6 % (21-46); MONOCYTES ABSOLUTE AUTO 0.65 K/mm3 (0.16-1.47); MONOCYTES PERCENT AUTO 11 % (4-13); Mean Corpuscular HGB Conc 31.0 g/dL (31.5-36.5); Mean Corpuscular Volume 98 fL (80-100); NEUTROPHILS ABSOLUTE AUTO 4.56 K/mm3 (1.96-9.15); NEUTROPHILS PERCENT AUTO 79 % (41-73); NRBC ABSOLUTE 0.00 K/mm3 (0.00-0.02); NRBC Auto 0.0 /100 WBC (0.0-0.2); Platelet Count 284 K/mm3 (150-400); RDW Coefficient Variation 15.8 % (11.7-14.2); RDW Standard Deviation 56.8 fL (35.1-46.3)
[2025-02-02 17:46] LABS: Alanine Aminotransfer (ALT/SGP 17.0 U/L (12-78); Albumin, Blood 2.4 g/dL (3.4-5.0); Albumin/Globulin Ratio 0.7 (0.8-1.8); Anion Gap 11.0 mmol/L (3-11); Aspartate Aminotrans (AST/SGOT 17.0 U/L (12-37); Bilirubin, Total 0.4 mg/dL (0.1-1.0); Blood Urea Nitrogen 33.0 mg/dL (8-24); CO2, Blood 33.0 mmol/L (21-32); Calcium, Blood 8.7 mg/dL (8.5-10.1); Chloride, Blood 93.0 mmol/L (98-108); Creatinine, Blood 3.55 mg/dL (0.60-1.20); Globulin, Blood 3.6 g/dL (2.2-4.0); Glucose, Blood 162.0 mg/dL (70-99); Potassium, Blood 2.8 mmol/L (3.5-5.5); Sodium, Blood 134.0 mmol/L (136-145); Total Protein, Blood 6.0 g/dL (6.4-8.2)
[2025-02-02] MEDS ORDERED: CefTRIAXone Sodium 1,000 MG in NS 100 ML IV ONE (17:50)
[2025-02-02 18:02] LABS: Source, Urine Foley catheter
[2025-02-02 18:05] LABS: Bilirubin, Urine Neg (Neg); Glucose Qualitative, Urine 1+ (Neg); Ketones, Urine Neg (Neg); Leukocyte Esterase, Urine 2+ (Neg); Protein, Urine 3+ (Neg); Specific Gravity, Urine 1.010 (1.003-1.022); Urobilinogen, Urine NORM (Normal)
[2025-02-02 18:14] LABS: Color, Urine Pale Yellow (P-Yellow)
[2025-02-02] MEDS ORDERED: Ondansetron HCl 2 MG / ML 2ML Vial IV PRN (20:50)
[2025-02-02] MEDS ORDERED: NS 1,000 ML IV ONE (20:59)
[2025-02-02] MEDS ORDERED: Albuterol 2.5 MG/3 ML VIAL INH PRN (21:15)
[2025-02-02] MEDS ORDERED: Darbepoetin (Pharmacy Consult) SC SCH (21:40)
[2025-02-02 21:46] LABS: pH Blood Venous 7.48 (7.34-7.37)
[2025-02-02 22:29] LABS: Ferritin, Serum 758.0 ng/mL (26-388); Total Iron Binding Capacity 174.0 ug/dL (250-450)
[2025-02-02 22:47] VITALS: BP 143/82
[2025-02-03] VITALS (21 sets, daily range): BP systolic 107–154; BP diastolic 57–101
[2025-02-03] MEDS ORDERED: Insulin Human Lispro 100 Units/ML 3ML Syringe SC SCH
[2025-02-03 00:04] LABS: Influenza A, PCR NEGATIVE (NEGATIVE); Influenza B, PCR NEGATIVE (NEGATIVE); Resp Syncytial Virus, PCR NEGATIVE (NEGATIVE); SARS-Cov-2 (COVID-19) PCR, MMC NEGATIVE (NEGATIVE)
[2025-02-03 00:13] LABS: Hematocrit 24.5 % (37.0-53.0); Hemoglobin 7.6 g/dL (13.5-17.5)
[2025-02-03] MEDS ORDERED: Potassium Chl 20MEQ/Water100ML 100 ML IV ONE (00:40)
[2025-02-03 04:27] LABS: Hematocrit 25.5 % (37.0-53.0); Hemoglobin 8.0 g/dL (13.5-17.5); Mean Corpuscular HGB Conc 31.4 g/dL (31.5-36.5); Mean Corpuscular Volume 94 fL (80-100); NRBC ABSOLUTE 0.00 K/mm3 (0.00-0.02); NRBC Auto 0.0 /100 WBC (0.0-0.2); Platelet Count 259 K/mm3 (150-400); RDW Coefficient Variation 18.5 % (11.7-14.2); RDW Standard Deviation 64.1 fL (35.1-46.3)
[2025-02-03 04:53] LABS: Albumin, Blood 2.5 g/dL (3.4-5.0); Anion Gap 6 mmol/L (3-11); Blood Urea Nitrogen 32 mg/dL (8-24); CO2, Blood 34 mmol/L (21-32); Calcium, Blood 8.6 mg/dL (8.5-10.1); Chloride, Blood 95 mmol/L (98-108); Creatinine, Blood 3.90 mg/dL (0.60-1.20); Glucose, Blood 112 mg/dL (70-99); Magnesium, Blood 2.2 mg/dL (1.6-2.4); Phosphorus, Blood 2.1 mg/dL (2.5-4.9); Potassium, Blood 3.3 mmol/L (3.5-5.5); Sodium, Blood 132 mmol/L (136-145)
[2025-02-03] MEDS ORDERED: LACT PO (05:42)
[2025-02-03] MEDS ORDERED: INSULANI SC (05:48)
[2025-02-03] MEDS ORDERED: ASCO500 PO (05:48)
--- NOTE | 2025-02-03 06:29 | NUR ---
NOC SHIFT SUMMARY PT ARRIVED TO UNIT AT APPROXIMATELY 2200 FROM ER VIA STRETCHER. LETHARGIC BUT OPENS EYES TO VOICE AND NAME. HEART SOUNDS WITH MURMUR, LUNGS DIM T/O. VSS ON RA. ATTEMPTED CPAP PER RT BUT UNABLE TO KEEP ON. AT BEDSIDE, EDUCATED ON VISITOR EXPECTATION AND MADE COMFORTABLE AND ORIENTED TO ROOM. MED RECONCILIATION COMPLETED WITH AND [facility] L[facility]. ABLE TO TAKE MEDICATION CRUSHED IN APPLESAUCE WITH PROMPTING SITTING UPRIGHT. MAY BENEFIT FROM SPEECH REFERRAL ONCE MENTATION CLEARS. SPOKE WITH DR. GONZALES @4655 REGARDING K+ 2.8. PER MD DRAW K+ STAT. RETURNED CALL WITH REPEAT LAB. ORDER FOR 20MEQ IV POTASSIUM X1 RECEIVED. CONFIRMED WITH ADRIANNA ZACARIAS MD NO PLAN FOR 2ND UNIT OF BLOOD DUE TO HGB BEING WNL FOR PATIENT AFTER ONE UNIT. FAMILY REPORTS STRAIGHT CATHING AT HOME APPROXIMATELY Q12 BUT HAS VERY LITTLE URINE OUTPUT/OLIGURIA. HD CATH TO R CHEST, DECLINED TO ALLOW THIS RN TO CHANGE DRESSING TO EQUIVALENT OR TEGADERM DUE TO TAPE SENSITIVITY. PREFERS TO ALLOW WOOD FLOORING SPECIALIST TODAY TO DO SO
[2025-02-03] MEDS ORDERED: Potassium Phosphate Dibasic 20 MM in Dextrose 5% 500 ML IV ONE (06:40)
--- NOTE | 2025-02-03 08:48 | NUR ---
UPDATE PATIENT TO DIALYSIS VIA HOSPITAL BED, AT BEDSIDE. VSS, PATIENT IN NO SIGNS OF DISTRESS.
[2025-02-03] MEDS ORDERED: Darbepoetin Alfa In Albumn Sol 40 MCG/0.4 ML SC SCH (09:00)
[2025-02-03] MEDS ORDERED: Vancomycin (Pharmacy Consult) IV SCH (09:10)
[2025-02-03 09:54] LABS: Prothrombin Time Results 12.2 Sec (9.7-11.5)
--- NOTE | 2025-02-03 11:54 | NUR ---
UPDATE 1105 PATIENT BACK FROM DIALYSIS, VSS, PATIENT IN NO DISTRESS. 1155 PATIENT TO MRI VIA [facility].
[2025-02-03 12:23] LABS: Influenza A/2009-H1 Not Detected (NOT DETECT); SARS-Cov-2 (COVID-19), BioFire Not Detected (NOT DETECT)
--- NOTE | 2025-02-03 17:11 | NUR ---
SHIFT SUMMARY PATIENT IS ALERT AND ORIENTED TO SELF AND INTERMITTENTLY ORIENTED TO LOCATION, AND ABLE TO FOLLOW COMMANDS. PATIENT IS ALERT AND ORIENTED X3 AT BASELINE AND CONVERSATIONAL. TELE IN PLACE, SINUS RHYTHM 80'S, PATIENT DENIES CHEST PAIN OR PRESSURE. SPO2 >90% ON RA, PATIENT WEARS CPAP AT [facility]. PATIENT IS PARAPLEGIC, LACK OF SENSATION IS FROM THE UMBILICUS DOWN. PATIENT INCONTINENT OF STOOL, BLACK STOOL PRESENT IN BRIEF, PATIENT REPORTS PATIENT TAKES IRON SUPPLEMENTS AT HOME AND BLACK STOOLS ARE NORMAL FOR HIM. DIALYSIS DONE THIS AM. IMAGING PERFORMED THIS SHIFT, SEE REPORT FOR FURTHER INFORMATION. PATIENT CHRONICALLY RETAINS URINE, PATIENT REPORTS STRAIGHT CATHETERIZATIONS AT HOME Q12 HOURS. BLADDER SCAN PERFORMED THIS SHIFT, 165 ML URINE PRESENT IN SHIFT, NO STRAIGHT CATH DONE PER PROTOCOL, WILL CONTINUE TO MONITOR. PATIENT IS A LIFT ASSIST, Q2 TURNS. PATIENT IS UP IN BED, BED IN LOWEST POSITION.
[2025-02-03] MEDS ORDERED: MIDO5 PO (18:09)
[2025-02-03] MEDS ORDERED: RENAL VITAMIN0.8 MG PO (18:13)
[2025-02-03] MEDS ORDERED: NS 250 ML IV PRN (20:20)
[2025-02-03] MEDS ORDERED: CefTRIAXone Sodium 1,000 MG in NS 100 ML IV SCH (21:00)
[2025-02-03] MEDS ORDERED: Lactobacil 2-S.Thermo-Bifido 1 1 Cap PO SCH (21:00)
[2025-02-04] VITALS (18 sets, daily range): BP systolic 103–159; BP diastolic 60–83
[2025-02-04 04:20] LABS: Hematocrit 27.2 % (37.0-53.0); Hemoglobin 8.3 g/dL (13.5-17.5)
[2025-02-04 04:52] LABS: Albumin, Blood 2.5 g/dL (3.4-5.0); Anion Gap 9 mmol/L (3-11); Blood Urea Nitrogen 27 mg/dL (8-24); CO2, Blood 31 mmol/L (21-32); Calcium, Blood 8.4 mg/dL (8.5-10.1); Chloride, Blood 96 mmol/L (98-108); Creatinine, Blood 3.60 mg/dL (0.60-1.20); Glucose, Blood 104 mg/dL (70-99); Magnesium, Blood 2.0 mg/dL (1.6-2.4); Phosphorus, Blood 2.9 mg/dL (2.5-4.9); Potassium, Blood 3.3 mmol/L (3.5-5.5); Sodium, Blood 133 mmol/L (136-145); Vancomycin, Random 29.3 ug/mL
--- NOTE | 2025-02-04 04:52 | NUR ---
SHIFT SUMMARY PT A&O TO SELF AND FAMILY. BP STABLE, SINUS 70's, DENIES CP/PRESSURE. SpO2> 92% RA WHILE AWAKE, CPAP WHILE ASLEEP, DENIES SOB. PT REMAINED BEDREST WITH Q2 TURNS PROVIVED. NO C/O PAIN. BLADDER SCANS <400mLs. AT BEDSIDE THROUGHOUT NIGHT. NO OTHER EVENTS, WILL REPORT TO ONCOMING RN.
[2025-02-04] MEDS ORDERED: Vitamin B Cmplx/Vit C/Folic Ac 1 Tab PO SCH (09:00)
[2025-02-04 14:32] LABS: Hematocrit 29.4 % (37.0-53.0); Hemoglobin 9.0 g/dL (13.5-17.5); IMMATURE RETIC FRACTION 35.7 % (2.3-16.0); RETIC HGB EQUIVALENT 33.7 pg (28.20-36.60); RETICULOCYTE ABSOLUTE 0.1174 M/mm3 (0.0200-0.1100); RETICULOCYTE COUNT PERCENT 3.85 % (0.50-2.50)
--- NOTE | 2025-02-04 18:35 | NUR ---
SHIFT SUMMARY PT IS HAS BEEN A&O X 2-3 T/OUT SHIFT. THIS MORNING PT WAS ALERT BUT DROWSY AND MUMBLING, UNABLE TO FORM COMPLETE SENTENCES. THIS EVENING, HE HAS BEEN MUCH MORE AWAKE AND SPEECH HAS GOTTEN LOUDER AND MORE CLEAR. PT IS ON BEDREST AND UTILIZES A LIFT DUE TO PARAPALEGIA. Q2 TUNS T/O SHIFT. PT HAS HAD MULTIPLE INC. VOIDS AND BLACK STOOLS. PT MAINTAINS NSR 70s-80s W/ STABLE BPs, MAP > 65. HE HAS MAINTAINED O2 SATS 92% AND ABOVE ON RA T/O SHIFT W/ NO COMPLAINTS OF SOB. PT HAD DIALYSIS THIS SHIFT AND HAD ABOUT 2L REMOVED. DR. ORTIZ ROUNDED ON PT THIS MORNING WITH PT'S AT BEDSIDE, WHO IS INVOLVED WITH HIS CARE. PT'S LATER VOICED THAT SHE HAD MORE QUESTIONS FOR DR. ORTIZ. DR. ORTIZ THEN RETURNED TO FURTHER TALK WITH HER AND ANSWER QUESTIONS. PATIENT ADVOCATE SAW PT TODAY WELL AND ADDRESSED 'S CONCERNS ABOUT THE PT POTENTIALLY RETURNING TO MEDICAL FLOOR, HE WAS CHANGED TO MEDICAL STATUS W/ TELE TODAY. PT CURRENTLY RESTING IN BED, AND SISTER IN LAW AT BEDSIDE. SEE NOTES FOR UPDATES.
[2025-02-05] VITALS (14 sets, daily range): BP systolic 112–173; BP diastolic 71–103
[2025-02-05 04:09] LABS: BASOPHILS ABSOLUTE AUTO 0.02 K/mm3 (0.00-0.23); BASOPHILS PERCENT AUTO 0 % (0-2); EOSINOPHILS ABSOLUTE AUTO 0.20 K/mm3 (0.00-0.68); EOSINOPHILS PERCENT AUTO 4 % (0-6); Hematocrit 28.4 % (37.0-53.0); Hemoglobin 8.6 g/dL (13.5-17.5); IMMATURE GRAN ABSOLUTE AUTO 0.06 K/mm3 (0.00-0.10); IMMATURE GRAN PERCENT AUTO 1 % (0-1); LYMPHOCYTES ABSOLUTE AUTO 0.45 K/mm3 (0.84-5.20); LYMPHOCYTES PERCENT AUTO 8 % (21-46); MONOCYTES ABSOLUTE AUTO 0.71 K/mm3 (0.16-1.47); MONOCYTES PERCENT AUTO 13 % (4-13); Mean Corpuscular HGB Conc 30.3 g/dL (31.5-36.5); Mean Corpuscular Volume 98 fL (80-100); NEUTROPHILS ABSOLUTE AUTO 3.95 K/mm3 (1.96-9.15); NEUTROPHILS PERCENT AUTO 73 % (41-73); NRBC ABSOLUTE 0.00 K/mm3 (0.00-0.02); NRBC Auto 0.0 /100 WBC (0.0-0.2); Platelet Count 285 K/mm3 (150-400); RDW Coefficient Variation 18.6 % (11.7-14.2); RDW Standard Deviation 64.9 fL (35.1-46.3)
[2025-02-05 04:31] LABS: Albumin, Blood 2.6 g/dL (3.4-5.0); Anion Gap 8 mmol/L (3-11); Blood Urea Nitrogen 18 mg/dL (8-24); CO2, Blood 31 mmol/L (21-32); Calcium, Blood 8.7 mg/dL (8.5-10.1); Chloride, Blood 103 mmol/L (98-108); Creatinine, Blood 3.70 mg/dL (0.60-1.20); Glucose, Blood 123 mg/dL (70-99); Magnesium, Blood 2.2 mg/dL (1.6-2.4); Phosphorus, Blood 3.0 mg/dL (2.5-4.9); Potassium, Blood 3.6 mmol/L (3.5-5.5); Sodium, Blood 138 mmol/L (136-145); Vancomycin, Random 23.2 ug/mL
--- NOTE | 2025-02-05 06:44 | NUR ---
SHIFT SUMMARY PT SLEEPY BUT EASILY AROUSABLE TO VERBAL STIMULI. ORIENTED TO NAME/, LOCATION, YEAR. HR IN THE 90'S, SR, HE DENIES ANY CP/PRESSURE, NUMB/TINGLING, SBP STABLE. SpO2 >92% ON RA. PER REPORT PT USES CPAP FOR NOC USE. TRIED TO PLACE PT ON CPAP FOR SLEEP, PT AND REFUSED. PT'S SATS REMAINED ABOVE 90% T/O NIGHT. PT INCONTINENT OF BOWELS AND URINE. PT HAD 1 INCONTINENT BOWEL AND URINE T/O NIGHT. BLADDER SCANNED PT, HE HAD 81MLS PRESENT. PT RESTING IN BED AT THIS TIME. CALL LIGHT IN REACH. WILL MONITOR PT AND REPORT TO ONCOMING RN.
[2025-02-05] MEDS ORDERED: Miconazole Nitrate 2% 85 GM PWD TOP SCH (09:30)
[2025-02-05] MEDS ORDERED: Loratadine 5 MG/5 ML 5MLUDC PO SCH (09:30)
[2025-02-05] MEDS ORDERED: CEFP200 PO (11:58)
--- NOTE | 2025-02-05 13:01 | NUR ---
D/C SUMMARY THE PT HAS BEEN A&OX3 AND MORE ALERT THIS MORNING. HE HAS BEEN IMPROVING ON HIS MENTATION AND FOLLOW COMMANDS. FAMILY EVEN STATED HE MEMORY IS IMRPOVING BECAUSE THE PT REMEMEBRED THAT HIS [id number] GOT HIM A SHIRT A YEAR AGO, WHICH HE WAS WEARING. THE PT HAS BEEN ON RA W/ SP02 >93%. HE DENIES ANY SOB. ON TELE HE WAS SR AND BP WAS STABLE. THEPT DID HAVE DIALYSIS TODAY AND WILL CONTINUE DIALYSIS OUTPT SCHEDULED. THE PT'S MEDICATIONS HAVE BEEN FAXED TO [facility], AND THIS RN VIGOURSLY WENT OVER DISCHARGE MEDICATIONS, DISCHARGE ORDERS, UTI PREVENTION, AND FOLLOWING UP WITH HIS PCP. NO ACUTE EVENTS THIS SHIFT. PT WILL BE DISCHARGING HOME IN HIS OWN WHEELECHAIR AND [facility] WILL TRANSPORT HIM HOME. AWAITING FOR THE PT'S [id number] TO BRING UP HIS WHEELECHAIR FROM THE [employer] LOT AT THIS TIME. SEE NOTES IF ANY UPDATES.
[2025-02-05] MEDS ORDERED: DULoxetine HCL 60 MG Capsule DR PO SCH (21:00)
== END 2025-02-05 13:14 | disposition home or self-care (01) | DRG 193 ==
LOC: ER 16:20 → PCU 16:21 → ERHOLD 16:21 → PCU 22:13
PROVIDERS: Emergency Medicine; Family Medicine; Internal Medicine Nephrology; Nurse Practitioner Acute Care; ADMIT Student in an Organized Health Care Education/Training Program
PROC: 3E03329 Introduction of Other Anti-infective into Peripheral Vein, Percutaneous Approach (ICD-10-PCS; principal; 2025-02-02)
PROC: 30233N1 Transfusion of Nonautologous Red Blood Cells into Peripheral Vein, Percutaneous Approach (ICD-10-PCS; 2025-02-02)
PROC: 0T9B70Z Drainage of Bladder with Drainage Device, Via Natural or Artificial Opening (ICD-10-PCS; 2025-02-03)
PROC: 5A09357 Assistance with Respiratory Ventilation, Less than 24 Consecutive Hours, Continuous Positive Airway Pressure (ICD-10-PCS; 2025-02-03)
PROC: 5A1D70Z Performance of Urinary Filtration, Intermittent, Less than 6 Hours Per Day (ICD-10-PCS; 2025-02-03)
DX: J18.9 Pneumonia, unspecified organism (principal); G92.8 Other toxic encephalopathy; N18.6 End stage renal disease; J44.0 Chronic obstructive pulmonary disease with (acute) lower respiratory infection; G36.0 Neuromyelitis optica [Devic]; I13.0 Hypertensive heart and chronic kidney disease with heart failure and stage 1 through stage 4 chronic kidney disease, or unspecified chronic kidney disease; E87.1 Hypo-osmolality and hyponatremia; E87.20 Acidosis, unspecified; I50.32 Chronic diastolic (congestive) heart failure; D63.1 Anemia in chronic kidney disease; E87.6 Hypokalemia; G47.33 Obstructive sleep apnea (adult) (pediatric); G40.909 Epilepsy, unspecified, not intractable, without status epilepticus; E87.8 Other disorders of electrolyte and fluid balance, not elsewhere classified; E83.39 Other disorders of phosphorus metabolism; E88.09 Other disorders of plasma-protein metabolism, not elsewhere classified; E11.22 Type 2 diabetes mellitus with diabetic chronic kidney disease; Z86.711 Personal history of pulmonary embolism; Z79.01 Long term (current) use of anticoagulants; Z99.2 Dependence on renal dialysis; Z88.8 Allergy status to other drugs, medicaments and biological substances; Z88.2 Allergy status to sulfonamides; Z74.01 Bed confinement status; Z79.4 Long term (current) use of insulin
CPT/HCPCS: 0202U; 36415; 36430; 70450; 70496; 70498; 70551; 71045; 80053; 80069; 80202; 81001; 82140; 82728; 82803; 82947; 83036; 83540; 83550; 83605; 83735; 84132; 84145; 84484; 85014; 85018; 85025; 85027; 85045; 85610; 85730; 86850; 86900; 86901; 86923; 87040; 87086; 87637; 93005; 93010; 93308; 94660; 94762; 96365; 96366; 96368; 96372; 96375; 97167; 97535; 99285-25; A9270; G0257; G0378; J0456; J0696; J0881; J3373; J3480; J7030; J7040; J7050; J7060; P9016; Q9967

== ENCOUNTER → 2025-02-23 | Outpatient (CLI) | payer OTHER ==
[~2025-02-23] MED LIST changes: +INSULANI SC; +LACT PO; +RENAL VITAMIN0.8 MG PO
[2025-02-23 15:15] LABS: Bilirubin, Urine Neg (Neg); Glucose Qualitative, Urine Neg (Neg); Ketones, Urine Neg (Neg); Leukocyte Esterase, Urine 3+ (Neg); Protein, Urine 3+ (Neg); Specific Gravity, Urine 1.010 (1.003-1.022); Urobilinogen, Urine NORM (Normal)
[2025-02-23 15:30] LABS: Color, Urine Pale Yellow (P-Yellow)
[2025-02-23 15:31] LABS: White Blood Cells, Urine TNTC /hpf (0-5)
[2025-02-23 15:32] LABS: Red Blood Cells, Urine 25-50 /hpf (0-2)
== END | disposition home or self-care (01) ==
LOC: LAB 13:16 → LAB SHORT 13:16
PROVIDERS: Internal Medicine Nephrology
DX: N18.6 End stage renal disease (principal)
CPT/HCPCS: 81001; 87086